=== PATIENT | female | born 1975 | race Hispanic/Latino ===

== ENCOUNTER 2018-10-31 00:14 | Emergency (ER) | payer OTHER, SELFPAY ==
[2018-10-31] MEDS ORDERED: LEVETIRACETAM 500 MG/5 ML VIAL IV ONE (00:47)
[2018-10-31] MEDS ORDERED: NA CHLORIDE 0.9% 250 ML ONE (00:47)
[2018-10-31 01:27] LABS: Absolute Lymphocytes (CBC) 3.7 K/uL (0.7-4.9); Basophils % 0.4 % (0-1.3); Hematocrit 34.5 % (36.0-45.0); Lymphocytes % 50.3 % (15.3-44.8); MPV 8.6 fL (7.6-11.3); RBC Red Blood Cell Count 3.91 M/uL (3.86-4.86)
[2018-10-31 01:35] LABS: Magnesium 1.9 mg/dL (1.8-2.4); Potassium 3.1 mmol/L (3.5-5.1)
[2018-10-31 01:46] LABS: Urine Blood 2+ (NEG); Urine Glucose NEGATIVE (NEG); Urine Protein NEGATIVE (NEG)
--- NOTE | 2018-10-31 03:32 | ER ---
Nurse's Notes [facility] Name: Shannen Boyd Age: 43 yrs Sex: Female : 1975 Arrival Date: 10/31/2018 Time: 00:16 Bed 8 Private MD: Diagnosis: Dysphagia;Epilepsy and recurrent seizures Presentation: 10/31 00:36 Presenting complaint: states: pt had a seizure in her sleep lasting 3 to 5 bb minutes pt has history of seizures pt having difficulty breathing after seizure and is holding her neck saying it helps her to breath more smoothly pt has had similar symptoms in the past which she states resolved on its own. Transition of care: patient was not received from another setting of care. Onset of symptoms was October 31, 2018. Risk Assessment: Do you want to hurt yourself or someone else? Patient reports no desire to harm self or others. Initial Sepsis Screen: Does the patient meet any 2 criteria? No. Patient's initial sepsis screen is negative. Does the patient have a suspected source of infection? No. Patient's initial sepsis screen is negative. Care prior to arrival: None. 00:36 Method Of Arrival: Ambulatory bb 00:36 Acuity: KEVAN 2 bb Triage Assessment: 00:40 Respiratory: Onset: The symptoms/episode began/occurred 2330 10/30/2018, the patient rr5 reports symptoms have resolved. 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 - Social history:: Smoking status: Patient/guardian denies using tobacco. - Ebola Screening: : No symptoms or risks identified at this time. Screenin:22 Patient has been NPO before screening. The patient is alert, able to follow commands. rr5 no voice The patient is exhibiting difficulty speaking. Provider notified of indication for Speech Therapy consult. The patient does not exhibit difficulty understanding words. The patient is able to swallow own secretions with no drooling or need for suction. Patient tolerated one teaspoon of water. No drooling, immediate coughing, gurgling, or clearing of the throat was noted. The patient tolerated 90mL of water. No drooling, immediate coughing, gurgling, or clearing of the throat was noted. The patient failed the bedside swallow screening. The patient will be kept NPO until cleared by Speech Therapy or Physician. Provider notified of bedside swallow screening results: Foster Vicnete MD. 01:30 Abuse screen: Denies threats or abuse. Denies injuries from another. Nutritional rr5 screening: No deficits noted. Tuberculosis screening: No symptoms or risk factors identified. Fall Risk Secondary diagnosis (15 points) seizures, IV access (20 points). Total Haynes Fall Scale indicates Low Risk Score (25-44 pts). Fall prevention measures have been instituted. Side Rails Up X 2 Placed close to Nursing Station Frequent Obs/Assesments occuring Family Present and informed to notify staff if they need to leave bedside As available Patient and Family Educated on Fall Prevention Program and strategies. Assessment: 00:40 General: Appears in no apparent distress. uncomfortable, Behavior is calm, cooperative, rr5 appropriate for age, Reports unable to speak to voice coming out. 00:40 Pain: Denies pain. Neuro: Level of Consciousness is awake, alert, obeys commands, rr5 Oriented to person, place, time, situation, Appropriate for age Speech difficulty to speak. Reports seizure started 2330 lasted 3-5 minutes. Cardiovascular: Capillary refill < 3 seconds Patient's skin is warm and dry. Rhythm is sinus bradycardia. Respiratory: Reports Airway is patent Trachea midline Respiratory effort is even, unlabored, Respiratory pattern is regular, symmetrical, Breath sounds are clear. GI: No signs and/or symptoms were reported involving the gastrointestinal system. : No signs and/or symptoms were reported regarding the genitourinary system. EENT: No signs and/or symptoms were reported regarding the EENT system. Derm: Skin is intact, Skin temperature is warm. Musculoskeletal: Circulation, motion, and sensation intact. Capillary refill < 3 seconds. 02:00 Reassessment: Patient appears in no apparent distress at this time. Patient and/or rr5 family updated on plan of care and expected duration. Pain level reassessed. Patient is alert, oriented x 3, equal unlabored respirations, skin warm/dry/pink. no complaints made awaiting for results. 03:00 Reassessment: Patient appears in no apparent distress at this time. Patient and/or rr5 family updated on plan of care and expected duration. Pain level reassessed. awaiting for CT result. 04:15 Reassessment: Patient appears in no apparent distress at this time. Patient is alert, rr5 oriented x 3, equal unlabored respirations, skin warm/dry/pink. 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 Vital Signs: 00:40 BP 133 / 63; Pulse 72; Resp 16 S; Temp 98(O); Pulse Ox 99% on R/A; Weight 80.74 kg (R); bb Height 5 ft. 7 in. (170.18 cm) (R); Pain 0/10; 02:46 Pulse 55; Resp 17; Pulse Ox 97% on R/A; ak1 03:05 BP 118 / 79; Pulse 58; Resp 17; Pulse Ox 98% ; rr5 04:15 BP 125 / 70; Pulse 60; Resp 16; Temp 97.5; Pulse Ox 98% ; rr5 00:40 Body Mass Index 27.88 (80.74 kg, 170.18 cm) bb ED Course: 00:16 Patient arrived in ED. ds1 00:39 Triage completed. bb 00:39 Foster Vicente MD is Attending Physician. tw4 00:40 Arm band placed on Patient placed in an exam room, on a stretcher, on pulse oximetry. bb Family accompanied patient. 00:40 Patient has correct armband on for positive identification. Placed in gown. Bed in low rr5 position. Call light in reach. Side rails up X2. manager monitoring on. Pulse ox on. NIBP on. 00:43 Fercho De RN is Primary Nurse. rr5 01:00 Inserted saline lock: 20 gauge in right antecubital area, using aseptic technique. oe Blood collected. 01:04 EKG done, by ED staff, reviewed by Foster Vicente MD. rr5 02:14 CT-SOFT TISSUE NECK W/O CONTR In Process Unspecified. EDMS 03:29 Rossi Lehman MD is Referral Physician. tw4 03:30 Gasper Yu MD is Referral Physician. tw4 03:30 Don Kidd MD is Referral Physician. tw4 04:10 No provider procedures requiring assistance completed. IV discontinued, intact, rr5 bleeding controlled, No redness/swelling at site. Pressure dressing applied. Administered Medications: 01:00 Drug: Keppra 20 mg/kg Route: IV; Rate: per protocol; Site: right antecubital; rr5 01:30 Follow up: Response: No adverse reaction; IV Status: Completed infusion; IV Intake: rr5 250ml 01:22 Not Given (Other Intervention Used): Keppra 20 mg/kg PO once; not to exceed 1,500 rr5 milligrams Point of Care Testing: Blood Glucose: 01:01 Blood Glucose: 114 mg/dL; oe Ranges: Intake: 01:30 IV: 250ml; Total: 250ml. rr5 Outcome: 03:31 Discharge ordered by . tw4 04:15 Discharged to home via wheelchair, with family. rr5 04:15 Condition: stable 04:15 Discharge instructions given to patient, family, Instructed on discharge instructions, follow up and referral plans. medication usage, Demonstrated understanding of instructions, follow-up care, medications, Prescriptions given X 1. 04:16 Patient left the ED. rr5 Signatures: Dispatcher [employer] [facility] Edith Townsend ds1 Gregoria Da Silva, RN RN Angelica Ramirez RN RN ak1 Zane Munoz Terrence, MD MD tw4 Fercho De, RN RN rr5
--- NOTE | 2018-10-31 03:32 | EDPHYS ---
Physician Documentation [facility] Name: Shannen Boyd Age: 43 yrs Sex: Female : 1975 Arrival Date: 10/31/2018 Time: 00:16 Bed 8 Private MD: ED Physician Foster Vicente HPI: 10/31 00:45 This 43 yrs old Female presents to ER via Ambulatory with complaints of tw4 Shortness Of Breath, Probable Seizure. 00:45 The patient or guardian complains of decreased range of motion. The symptoms are tw4 located on the chin. Onset: The symptoms/episode began/occurred today. Context: The problem was sustained at home. The patient presents after having a single isolated seizure. Character of seizure(s): Loss of consciousness:. Seizure onset: 1 hour(s) ago. Context: the seizure(s) was witnessed, by family, . Seizure Hx: the patient has no previous seizure history. Associated injury: Neck: decreased range of motion. 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 - Social history:: Smoking status: Patient/guardian denies using tobacco. - Ebola Screening: : No symptoms or risks identified at this time. ROS: 00:45 Constitutional: Negative for fever, chills, and weight loss, Eyes: Negative for injury, tw4 pain, redness, and discharge. 00:45 Abdomen/GI: Negative for abdominal pain, nausea, vomiting, diarrhea, and constipation, Back: Negative for injury and pain, MS/Extremity: Negative for injury and deformity, Skin: Negative for injury, rash, and discoloration. 00:45 Neck: Positive for pain with movement, stiffness. 00:45 Neuro: Positive for seizure activity, Negative for altered mental status, dizziness, gait disturbance, headache, hearing loss, loss of consciousness. Exam: 00:45 Constitutional: This is a well developed, well nourished patient who is awake, alert, tw4 and in no acute distress. Head/Face: Normocephalic, atraumatic. 00:45 Neck: External neck: is normal, no ecchymosis, no erythema, no laceration, no swelling, no tenderness, Trachea: no acute changes. Vital Signs: 00:40 BP 133 / 63; Pulse 72; Resp 16 S; Temp 98(O); Pulse Ox 99% on R/A; Weight 80.74 kg (R); bb Height 5 ft. 7 in. (170.18 cm) (R); Pain 0/10; 02:46 Pulse 55; Resp 17; Pulse Ox 97% on R/A; ak1 03:05 BP 118 / 79; Pulse 58; Resp 17; Pulse Ox 98% ; rr5 04:15 BP 125 / 70; Pulse 60; Resp 16; Temp 97.5; Pulse Ox 98% ; rr5 00:40 Body Mass Index 27.88 (80.74 kg, 170.18 cm) bb MDM: 00:39 Patient medically screened. tw4 06:00 Data reviewed: vital signs, nurses notes. Data interpreted: Pulse oximetry: 4 Interpretation: normal. Counseling: I had a detailed discussion with the patient and/or guardian regarding: the historical points, exam findings, and any diagnostic results supporting the discharge/admit diagnosis. 10/31 00:41 Order name: Magnesium tw 10/31 00:41 Order name: Basic Metabolic Panel [facility] 10/31 00:41 Order name: CBC with Diff [facility] 10/31 01:00 Order name: Glucose, Ancillary Testing [facility] 10/31 01:18 Order name: Urine Dipstick--Ancillary (enter results) [facility] 10/31 01:18 Order name: Urine --Ancillary (enter results) [facility] 10/31 00:41 Order name: Accucheck; Complete Time: 01:04 [facility] 10/31 00:41 Order name: Cardiac monitoring; Complete Time: 01:04 [facility] 10/31 00:41 Order name: EKG - Nurse/Tech; Complete Time: 01:04 [facility] 10/31 00:41 Order name: IV Saline Lock; Complete Time: 01:02 [facility] 10/31 01:15 Order name: CT-SOFT TISSUE NECK W/O CONTR [facility] 10/31 00:41 Order name: Labs collected and sent; Complete Time: 01:02 [facility] 09/23 00:41 Order name: NPO; Complete Time: 01:04 10/31 00:41 Order name: O2 Per Protocol; Complete Time: 01:04 10/31 00:41 Order name: O2 Sat Monitoring; Complete Time: 01:04 10/31 00:41 Order name: Stroke Swallow Screen; Complete Time: :4 Administered Medications: 01:00 Drug: Keppra 20 mg/kg Route: IV; Rate: per protocol; Site: right antecubital; rr5 01:30 Follow up: Response: No adverse reaction; IV Status: Completed infusion; IV Intake: rr5 250ml 01:22 Not Given (Other Intervention Used): Keppra 20 mg/kg PO once; not to exceed 1,500 rr5 milligrams Point of Care Testing: Blood Glucose: 01:01 Blood Glucose: 114 mg/dL; oe Ranges: Critical Glucose Levels:Adult <50 mg/dl or >400 mg/dl <40 mg/dl or >180 mg/dl Disposition: 10/31/18 03:31 Discharged to Home. Impression: Dysphagia, Epilepsy and recurrent seizures. - Condition is Stable. - Discharge Instructions: Seizure, Adult. - Prescriptions for Keppra 750 mg Oral Tablet - take 1 tablet by ORAL route every 12 hours; 20 tablet. - Medication Reconciliation Form, Thank You Letter, Antibiotic Education, Prescription Opioid Use, Work release form form. - Follow up: Private Physician; When: Upon discharge from the Emergency Department; Reason: If symptoms return, Recheck today's complaints, Continuance of care. Follow up: Rossi Lehman MD; When: Upon discharge from the Emergency Department; Reason: If symptoms return, Recheck today's complaints, Continuance of care. Follow up: Gasper Yu MD; When: Upon discharge from the Emergency Department; Reason: If symptoms return, Recheck today's complaints, Continuance of care. Follow up: Don Kidd MD; When: Upon discharge from the Emergency Department; Reason: If symptoms return, Recheck today's complaints, Continuance of care. - Problem is new. - Symptoms have improved. Signatures: Dispatcher [employer] Gregoria Ng RN RN Foster Palacio MD MD tw4 De, Fercho, RN RN rr5 Corrections: (The following items were deleted from the chart) 01:41 01:38 CT-SOFT TISSUE NECK W/O CONTR ordered. EDNE EDMS 04:16 03:31 10/31/2018 03:31 Discharged to Home. Impression: Dysphagia; Epilepsy and rr5 recurrent seizures. Condition is Stable. Forms are Medication Reconciliation Form, Thank You Letter, Antibiotic Education, Prescription Opioid Use. Follow up: Private Physician; When: Upon discharge from the Emergency Department; Reason: If symptoms return, Recheck today's complaints, Continuance of care. Follow up: Rossi Lehman; When: Upon discharge from the Emergency Department; Reason: If symptoms return, Recheck today's complaints, Continuance of care. Follow up: Gasper Yu; When: Upon discharge from the Emergency Department; Reason: If symptoms return, Recheck today's complaints, Continuance of care. Follow up: Don Kidd; When: Upon discharge from the Emergency Department; Reason: If symptoms return, Recheck today's complaints, Continuance of care. Problem is new. Symptoms have improved. tw4
[2018-10-31 04:31] VITALS: BP 133/63; TEMP 98
[2018-10-31 04:33] VITALS: O2SAT 97
--- NOTE | 2018-10-31 10:03 | RAD REPORT ---
EXAM DESCRIPTION: CT - CT-SOFT TISSUE NECK W/O CONTR - 10/31/2018 5:35 am CLINICAL HISTORY: Difficulty breathing COMPARISON: None. TECHNIQUE: CT-SOFT TISSUE NECK W/O CONTR on 10/31/2018 12:00 AM CDT This exam was performed according to our departmental dose-optimization program, which includes autom ated exposure control, adjustment of the mA and/or kV according to patient size and/or use of iterati ve reconstruction technique. FINDINGS: The visualized portions of the brain and orbits are normal. The oral cavity, oropharynx and nasopharynx are normal. The parapharyngeal fat planes are preserved . The hypopharynx is unremarkable. The parotid and submandibular glands are grossly within normal limits. No intrinsic mass lesions are seen. . The paranasal sinuses and mastoid air cells are clear. No definite pathologically enlarged lymph nodes are identified. The thyroid gland is normal in size and configuration. The thoracic inlet is normal. The superior mediastinum and lung apices are normal. No acute osseous abnormalities are identified. IMPRESSION: No significant abnormalities. Electronically signed by: Sanket Hilton MD 10/31/2018 2:24 AM CDT Due to temporary technical issues with the PACS/Fluency reporting system, reports are being signed by the in house radiologist as a courtesy to ensure prompt reporting. The interpreting radiologist is f ully responsible for the content of the report.
--- NOTE | 2018-10-31 13:36 | EKG ---
Test Date: 2018-10-31 Test Time: 00:58:54 [employer] Specialist: RR MEASUREMENT RESULTS: Intervals: Rate: 58 AK: 174 QRSD: 100 QT: 406 QTc: 398 [place]: P: 8 AK: 174 QRS: 21 T: 10 INTERPRETIVE STATEMENTS: Sinus bradycardia Otherwise normal ECG Compared to ECG 04/05/2008 21:02:13 Sinus rhythm no longer present Sinus arrhythmia no longer present Ventricular premature complex(es) no longer present Electronically Signed On 10-31-18 13:35:34 CDT by Dawit Jessica
== END 2018-10-31 04:16 | disposition home or self-care (01) ==
LOC: ER 00:14
DX: G40.802 Other epilepsy, not intractable, without status epilepticus (principal); Z85.3 Personal history of malignant neoplasm of breast
CPT/HCPCS: 36415; 70490; 80048; 81003; 81025; 82962; 83735; 85025; 93005; 96365; 99285; J1953

== ENCOUNTER 2022-03-30 10:00 | Emergency (ER) | payer OTHER ==
--- OUTSIDE RECORDS SUMMARY | 2022-03-30 10:08 | XMS REPORT | Continuity of Care Document ---
:[address] [facility] t Address [address] [place] [address] Care Team Providers Name Role Phone ROSA ODELL Primary Care Physician Unavailable AYE KIRKPATRICK Attending Clinician Unavailable ALYSSA MACDONALD Attending Clinician Unavailable ALYSSA MACDONALD Attending Clinician Unavailable SERGIO WALDRON Attending Clinician Unavailable KRISTINA BLACKWELL Attending Clinician Unavailable Torres CANALES, Alyssa Guo Attending Clinician King AIRPLANE TESTER, Catalina Mann Attending Clinician Unavailable Sarah Canales MD Attending Clinician SARAH CANALES Attending Clinician Unavailable Carlos Alberto Edmond PT, Janel Attending Clinician Unavailable Jhon AIRPLANE TESTER, Nayely Carter Attending Clinician Unavailable Giuseppe DORMAN, Charla Attending Clinician Unavailable Kate PT, Alejandrina Knight Attending Clinician Unavailable Lenora PT, Meli Bonilla Attending Clinician Unavailable Sergio Alvarez Attending Clinician Aye Kirkpatrick PA-C Attending Clinician ANJALI PETERS Attending Clinician Unavailable 2, [facility] Attending Clinician Unavailable Draw, [facility] Attending Clinician Unavailable Doctor Unassigned, [place] Attending Clinician Unavailable Zoran Hensley Attending Clinician ZORAN COKER Attending Clinician Unavailable Aliya Welch Attending Clinician Fabienne Driscoll Attending Clinician ALIYA PINEDO Attending Clinician Unavailable JERRY ISSA Attending Clinician Unavailable Zuhair Hammond MD, Chilvana Attending Clinician TODD ISSA Attending Clinician Unavailable Rosa Odell MD Attending Clinician ROSA ODELL Attending Clinician Unavailable HAJA CANNON Attending Clinician Unavailable PIPES, SERGIO Admitting Clinician Unavailable AYE KIRKPATRICK Admitting Clinician Unavailable Payers Payer Name Policy Type Policy Number Effective Date Expiration Date Philip bauer [facility] [id number] 2021 STAR 00:00:00 [place] [facility] [id number] 2017 00:00:00 Problems Condition Condition Condition Status Onset Resolution Last Treating Co mments Source Name Details Category Date Date Treatment Clinician Date B12 B12 Disease Active Univers deficiency deficiency 8-18 it y of 00:00: [address] Vitamin D Vitamin D Disease Active Uni vers deficiency deficiency 8-18 it y of 00:00: [address] Prediabete Prediabete Disease Active U nivers s s 8-18 ity of 00:00: [address] Fatigue Fatigue Disease Active Univers 8-17 ity of 00:00: [address] Right Right Disease Active Univers lateral lateral 8-17 ity of [place]ond[place] [facility] Obesity Obesity Disease Active Univers (BMI (BMI 6-24 ity of 30-39.9) 30-39.9) 00:00: [address] Cervical Cervical Disease Active Overview: Un lizette high risk high risk 4-26 [facility] ty of human human 00:00: g of this [place] papillomav papillomav 00 note Me dical irus (HPV) irus (HPV) might be Branch DNA test DNA test different positive positive from the original. Pap pending Allergies, Adverse Reactions, Alerts Allergy Allergy Status Severity Reaction(s) Onset Inactive Treating Comm ents Source Name Type Date Date Clinician NO KNOWN Drug Active Univers ALLERGIE Class ity of S [facility] Social History Social Habit Start Date Stop Date Quantity Comments Source History of Passive smoker University of tobacco use [facility] History SDOH University o f Alcohol Frequency [place] [facility] History [facility] University o f Alcohol Std [place] Medical Drinks Branch History [facility] o f Alcohol Binge [place] Medic al Branch Exposure to 2022-03-10 2022-03-20 Not sure University SARS-CoV-2 00:00:00 13:06:00 [place] [facility] (event) Branch Alcohol intake 2022-03-20 2022-03-20 Current drinker of Un iversity of 00:00:00 00:00:00 alcohol (finding) [facility] edical [place] Tobacco use and 2021-11-04 2021-11-04 Smokeless tobacco Un iversity of exposure 00:00:00 00:00:00 non-user [facility] Alcohol Comment 2019-07-20 2019-07-20 ocaasionally Univers ity of 00:00:00 00:00:00 [facility] Sex [birth year] Universit y of 00:00:00 00:00:00 [facility] Smoking Status Start Date Stop Date Source Never smoked tobacco [facility] Medications Ordered Filled Start Stop Current Ordering Indication Dosage Frequency Signature Comments Components Source Medication Medication Date Date Medication? Clinician (SIG) Name Name lidocaine 2022- No [id number] 2mL Univers 1% (PF) 03-20 9103 ity of (XYLOCAINE) 20:30: 19:43 [place] injection 2 00 :00 Medical mL Branch bupivacaine 2022- No [id number] 2mL Univers (preserv 03-20 9103 ity of free) 20:30: 19:43 [place] (SENSORCAIN 00 :00 Medical E MPF) 0.25 Branch % (2.5 mg/mL) injection 2 mL triamcinolo 2022- No [id number] 40mg Univers ne 03-20 9103 ity of acetonide 20:30: 19:43 [place] (KENALOG) 00 :00 Medical injection Branch 40 mg triamcinolo 2022- No [id number] 40mg 40 mg, Univers ne 03-20 9103 Infiltrati ity of acetonide 20:30: 19:43 [place] ([place] 00 :00 1 dose, On Medi endy injection Fri Branch 40 mg 03/20/22 at 1430, Routine bupivacaine 2022-0 2022- No [id number] 2mL 2 mL, Univers (preserv 03-20 9103 Infiltrati ity of free) 20:30: 19:43 on, ONCE, [place] (SENSORCAIN 00 :00 1 dose, On Me dical E MPF) 0.25 Fri Branch % (2.5 03/20/22 at mg/mL) 1430, injection 2 Routine mL lidocaine 2022-0 2022- No [id number] 2mL 2 mL, Univers 1% (PF) 03-20 9103 Infiltrati ity o f (XYLOCAINE) 20:30: 19:43 on, ONCE, [place] injection 2 00 :00 1 dose, On Me dical mL Fri Branch 03/20/22 at 1430, Routine lidocaine 2022-0 2022- No [id number] 2mL Univers 1% (PF) 03-20 9103 ity of (XYLOCAINE) 20:30: 19:43 [place] injection 2 00 :00 Medical mL Branch bupivacaine 2022-0 2022- No [id number] 2mL Univers (preserv 03-20 9103 ity of free) 20:30: 19:43 [place] (SENSORCAIN 00 :00 Medical E MPF) 0.25 Branch % (2.5 mg/mL) injection 2 mL triamcinolo 2022-0 2022- No [id number] 40mg Univers ne 03-20 9103 ity of acetonide 20:30: 19:43 [place] (KENALOG) 00 :00 Medical injection Branch 40 mg triamcinolo 2022-0 2022- No [id number] 40mg 40 mg, Univers ne 03-20 9103 Infiltrati ity of acetonide 20:30: 19:43 [place], [place] (KE[place]LOG) 00 :00 1 dose, On Medi endy injection Fri Branch 40 mg 03/20/22 at 1430, Routine bupivacaine 2022-0 2022- No [id number] 2mL 2 mL, Univers (preserv 03-20 9103 Infiltrati ity of free) 20:30: 19:43 on, ONCE, [place] (SENSORCAIN 00 :00 1 dose, On Me dical E MPF) 0.25 Fri Branch % (2.5 03/20/22 at mg/mL) 1430, injection 2 Routine mL lidocaine 2022- No [id number] 2mL 2 mL, Univers 1% (PF) 03-20 9103 Infiltrati ity o f (XYLOCAINE) 20:30: 19:43 on, ONCE, [place] injection 2 00 :00 1 dose, On Me dical mL Fri Branch 03/20/22 at 1430, Routine diazePAM 2021-02 Yes [id number] /2 to 1 Univers (VALIUM) 5 2-06 4 tab po BID ity of mg tablet 00:00: prn severe [place] 00 muscle Medical spasms and Branch neck pain. Alternate with baclofen pregabalin 2021-02 Yes [id number] 1 cap po Univers 75 mg 2-06 qam, 1 po ity of capsule 00:00: q noon [place] [facility] pregabalin 2021-02 Yes [id number] 200mg Take 1 Univers 200 mg 2-06 capsule by ity of capsule 00:00: mouth at [place] [address] bedtime. Medical Branch diazePAM 2021-02 Yes [id number] /2 to 1 Univers (VALIUM) 5 2-06 4 tab po BID ity of mg tablet 00:00: prn severe [place] 00 muscle Medical spasms and Branch neck pain. Alternate with baclofen pregabalin 2021-02 Yes [id number] 1 cap po Univers 75 mg 2-06 qam, 1 po ity of capsule 00:00: q noon [place] [facility] pregabalin 2021-02 Yes [id number] 200mg Take 1 Univers 200 mg 2-06 capsule by ity of capsule 00:00: mouth at [place] [address] bedtime. Medical Branch diazePAM 2021-02 Yes [id number] /2 to 1 Univers (VALIUM) 5 2-06 4 tab po BID ity of mg tablet 00:00: prn severe [place] 00 muscle Medical spasms and Branch neck pain. Alternate with baclofen pregabalin 2021-02 Yes [id number] 1 cap po Univers 75 mg 2-06 qam, 1 po ity of capsule 00:00: [facility] Medical Branch pregabalin 2021-02 Yes [id number] 200mg Take 1 Univers 200 mg 2-06 capsule by ity of capsule 00:00: mouth at [place] [address] bedtime. Medical Branch diazePAM 2021-02 Yes [id number] 1/2 to 1 Univers (VALIUM) 5 2-06 4 tab po BID ity of mg tablet 00:00: prn severe [place] 00 muscle Medical spasms and Branch neck pain. Alternate with baclofen pregabalin 2021-02 Yes [id number] 1 cap po Univers 75 mg 2-06 qam, 1 po ity [place] capsule [place] [address] Medical Branch pregabalin 2021-02 Yes [id number] 200mg Take 1 Univers 200 mg 2-06 capsule by ity of capsule 00:00: mouth at [place] [address] bedtime. Medical Branch diazePAM 2021-02 Yes [id number] /2 to 1 Univers (VALIUM) 5 2-06 4 tab po BID ity of mg tablet 00:00: prn severe [place] 00 muscle Medical spasms and Branch neck pain. Alternate with baclofen pregabalin 2021-02 Yes [id number] 1 cap po Univers 75 mg 2-06 qam, 1 po ity of capsule 00:00: q noon [place] [address] Medical Branch pregabalin 2021-02 Yes [id number] 200mg Take 1 Univers 200 mg 2-06 capsule by ity of capsule 00:00: mouth at [place] [address] bedtime. Medical Branch diazePAM 2021-02 Yes [id number] 1/2 to 1 Univers (VALIUM) 5 2-06 4 tab po BID ity of mg tablet 00:00: prn severe [place] 00 muscle Medical spasms and Branch neck pain. Alternate with baclofen pregabalin 2021-02 Yes [id number] 1 cap po Univers 75 mg 2-06 qam, 1 po [place]y [place] capsule [place] [address] [place] Branch pregabalin 2021-02 Yes [id number] 200mg Take 1 Univers 200 mg 2-06 capsule by ity of capsule 00:00: mouth at [place] [address] bedtime. Medical Branch diazePAM 2021-02 Yes [id number] 1/2 to 1 Univers (VALIUM) 5 2-06 4 tab po BID ity of mg tablet 00:00: prn severe [place] 00 muscle Medical spasms and Branch neck pain. Alternate with baclofen pregabalin 2021-02 Yes [id number] 1 cap po Univers 75 mg 2-06 qam, 1 po ity of capsule 00:00: q noon [place] [facility] pregabalin 2021-02 Yes [id number] 200mg Take 1 Univers 200 mg 2-06 capsule by ity of capsule 00:00: mouth at [place] 00 bedtime. Medical Branch diazePAM 2021-02 Yes [id number] 1/2 to 1 Univers (VALIUM) 5 2-06 4 tab po BID ity of mg tablet 00:00: prn severe [place] 00 muscle Medical spasms and Branch neck pain. Alternate with baclofen pregabalin 2021-02 Yes [id number] 1 cap po Univers 75 mg 2-06 qam, 1 po ity of capsule 00:00: [facility] Medical Branch pregabalin 2021-02 Yes [id number] 200mg Take 1 Univers 200 mg 2-06 capsule by ity of capsule 00:00: mouth at [place] [address] bedtime. Medical Branch diazePAM 2021-02 Yes [id number] 1/2 to 1 Univers (VALIUM) 5 2-06 4 tab po BID ity of mg tablet 00:00: prn severe [place] 00 muscle Medical spasms and Branch neck pain. Alternate with baclofen pregabalin 2021-02 Yes [id number] 1 cap po Univers 75 mg 2-06 qam, 1 po ity of capsule 00:00: q noon [place] [facility] pregabalin 2021-02 Yes [id number] 200mg Take 1 Univers 200 mg 2-06 capsule by ity of capsule 00:00: mouth at [place] [address] bedtime. Medical Branch diazePAM 2021-02 Yes [id number] 1/2 to 1 Univers (VALIUM) 5 2-06 4 tab po BID ity of mg tablet 00:00: prn severe [place] 00 muscle Medical spasms and Branch neck pain. Alternate with baclofen pregabalin 2021-02 Yes [id number] 1 cap po Univers 75 mg 2-06 qam, 1 po ity of capsule 00:00: [facility] Medical Branch pregabalin 2021-02 Yes [id number] 200mg Take 1 Univers 200 mg 2-06 capsule by ity of capsule 00:00: mouth at [place] [address] bedtime. Medical Branch diazePAM 2021-02 Yes [id number] 1/2 to 1 Univers (VALIUM) 5 2-06 4 tab po BID ity of mg tablet 00:00: prn severe [place] 00 muscle Medical spasms and Branch neck pain. Alternate with baclofen pregabalin 2021-02 Yes [id number] 1 cap po Univers 75 mg 2-06 qam, 1 po ity of capsule 00:00: q noon [place] [address] Medical Branch pregabalin 2021-02 Yes [id number] 200mg Take 1 Univers 200 mg 2-06 capsule by ity of capsule 00:00: mouth at [place] [address] bedtime. Medical Branch diazePAM 2021-02 Yes [id number] 1/2 to 1 Univers (VALIUM) 5 2-06 4 tab po BID ity of mg tablet 00:00: prn severe [place] 00 muscle Medical spasms and Branch neck pain. Alternate with baclofen pregabalin 2021-02 Yes [id number] 1 cap po Univers 75 mg 2-06 qam, 1 po ity of capsule 00:00: [facility] Medical Branch pregabalin 2021-02 Yes [id number] 200mg Take 1 Univers 200 mg 2-06 capsule by ity of capsule 00:00: mouth at [place] [address] bedtime. Medical Branch diazePAM 2021-02 Yes [id number] 1/2 to 1 Univers (VALIUM) 5 2-06 4 tab po BID ity of mg tablet 00:00: prn severe [place] 00 muscle Medical spasms and Branch neck pain. Alternate with baclofen pregabalin 2021-02 Yes [id number] 1 cap po Univers 75 mg 2-06 qam, 1 po ity of capsule 00:00: q noon [place] [facility] pregabalin 2021-02 Yes [id number] 200mg Take 1 Univers 200 mg 2-06 capsule by ity of capsule 00:00: mouth at [place] [address] bedtime. Medical Branch diazePAM 2021-02 Yes [id number] 1/2 to 1 Univers (VALIUM) 5 2-06 4 tab po BID ity of mg tablet 00:00: prn severe [place] 00 muscle Medical spasms and Branch neck pain. Alternate with baclofen pregabalin 2021-02 Yes [id number] 1 cap po Univers 75 mg 2-06 qam, 1 po ity of capsule 00:00: [facility] Medical Branch pregabalin 2021-02 Yes [id number] 200mg Take 1 Univers 200 mg 2-06 capsule by ity of capsule 00:00: mouth at [place] 00 bedtime. Medical Branch diazePAM 2021-02 Yes [id number] 1/2 to 1 Univers (VALIUM) 5 2-06 4 tab po BID ity of mg tablet 00:00: prn severe [place] 00 muscle Medical spasms and Branch neck pain. Alternate with baclofen pregabalin 2021-02 Yes [id number] 1 cap po Univers 75 mg 2-06 qam, 1 po ity of capsule 00:00: q noon [place] 00 Medical Branch pregabalin 2021-02 Yes [id number] 200mg Take 1 Univers 200 mg 2-06 capsule by ity of capsule 00:00: mouth at [place] [address] bedtime. Medical Branch diazePAM 2021-02 Yes [id number] 1/2 to 1 Univers (VALIUM) 5 2-06 4 tab po BID ity of mg tablet 00:00: prn severe [place] 00 muscle Medical spasms and Branch neck pain. Alternate with baclofen pregabalin 2021-02 Yes [id number] 1 cap po Univers 75 mg 2-06 qam, 1 po ity of capsule 00:00: q noon [place] 00 Medical Branch pregabalin 2021-02 Yes [id number] 200mg Take 1 Univers 200 mg 2-06 capsule by ity of capsule 00:00: mouth at [place] [address] bedtime. Medical Branch diazePAM 2021-02 Yes [id number] 1/2 to 1 Univers (VALIUM) 5 2-06 4 tab po BID ity of mg tablet 00:00: prn severe [place] 00 muscle Medical spasms and Branch neck pain. Alternate with baclofen pregabalin 2021-02 Yes [id number] 1 cap po Univers 75 mg 2-06 qam, 1 po ity of capsule 00:00: [facility] 00 Medical Branch pregabalin 2021-02 Yes [id number] 200mg Take 1 Univers 200 mg 2-06 capsule by ity of capsule 00:00: mouth at [place] [address] bedtime. Medical Branch diazePAM 2021-02 Yes [id number] 1/2 to 1 Univers (VALIUM) 5 2-06 4 tab po BID ity of mg tablet 00:00: prn severe [place] 00 muscle Medical spasms and Branch neck pain. Alternate with baclofen pregabalin 2021-02 Yes [id number] 1 cap po Univers 75 mg 2-06 qam, 1 po ity of capsule 00:00: q noon [place] 00 Medical Branch pregabalin 2021-02 Yes [id number] 200mg Take 1 Univers 200 mg 2-06 capsule by ity of capsule 00:00: mouth at [place] 00 bedtime. Medical Branch tiZANidine 2021-02 Yes [id number] 4mg Take 1 Univers 4 mg tablet 1-22 tablet by ity of 00:00: mouth [place] [address] every 6 Medical (six) Branch hours as needed (low back pain, muscle spasm). Alternate with baclofen. Avoid with sedating meds tiZANidine 2021-02 Yes [id number] 4mg Take 1 Univers 4 mg tablet 1-22 tablet by ity of 00:00: mouth [place] 00 every 6 Medical (six) Branch hours as needed (low back pain, muscle spasm). Alternate with baclofen. Avoid with sedating meds tiZANidine 2021-02 Yes [id number] 4mg Take 1 Univers 4 mg tablet 1-22 tablet by ity of 00:00: mouth [place] [address] every 6 Medical (six) Branch hours as needed (low back pain, muscle spasm). Alternate with baclofen. Avoid with sedating meds tiZANidine 2021-02 Yes [id number] 4mg Take 1 Univers 4 mg tablet 1-22 tablet by ity of 00:00: mouth [place] 00 every 6 Medical (six) Branch hours as needed (low back pain, muscle spasm). Alternate with baclofen. Avoid with sedating meds tiZANidine 2021-02 Yes [id number] 4mg Take 1 Univers 4 mg tablet 1-22 tablet by ity of 00:00: mouth [place] 00 every 6 Medical (six) Branch hours as needed (low back pain, muscle spasm). Alternate with baclofen. Avoid with sedating meds tiZANidine 2021-02 Yes [id number] 4mg Take 1 Univers 4 mg tablet 1-22 tablet by ity of 00:00: mouth [place] 00 every 6 Medical (six) Branch hours as needed (low back pain, muscle spasm). Alternate with baclofen. Avoid with sedating meds tiZANidine 2021-02 Yes [id number] 4mg Take 1 Univers 4 mg tablet 1-22 tablet by ity of 00:00: mouth [place] 00 every 6 Medical (six) Branch hours as needed (low back pain, muscle spasm). Alternate with baclofen. Avoid with sedating meds tiZANidine 2021-02 Yes [id number] 4mg Take 1 Univers 4 mg tablet 1-22 tablet by ity of 00:00: mouth [place] 00 every 6 Medical (six) Branch hours as needed (low back pain, muscle spasm). Alternate with baclofen. Avoid with sedating meds tiZANidine 2021-02 Yes [id number] 4mg Take 1 Univers 4 mg tablet 1-22 tablet by ity of 00:00: mouth [place] 00 every 6 Medical (six) Branch hours as needed (low back pain, muscle spasm). Alternate with baclofen. Avoid with sedating meds tiZANidine 2021-02 Yes [id number] 4mg Take 1 Univers 4 mg tablet 1-22 tablet by ity of 00:00: mouth [place] 00 every 6 Medical (six) Branch hours as needed (low back pain, muscle spasm). Alternate with baclofen. Avoid with sedating meds tiZANidine 2021-02 Yes [id number] 4mg Take 1 Univers 4 mg tablet 1-22 tablet by ity of 00:00: mouth [place] 00 every 6 Medical (six) Branch hours as needed (low back pain, muscle spasm). Alternate with baclofen. Avoid with sedating meds tiZANidine 2021-02 Yes [id number] 4mg Take 1 Univers 4 mg tablet 1-22 tablet by ity of 00:00: mouth [place] 00 every 6 Medical (six) Branch hours as needed (low back pain, muscle spasm). Alternate with baclofen. Avoid with sedating meds tiZANidine 2021-02 Yes [id number] 4mg Take 1 Univers 4 mg tablet 1-22 tablet by ity of 00:00: mouth [place] 00 every 6 Medical (six) Branch hours as needed (low back pain, muscle spasm). Alternate with baclofen. Avoid with sedating meds tiZANidine 2021-02 Yes [id number] 4mg Take 1 Univers 4 mg tablet 1-22 tablet by ity of 00:00: mouth [place] 00 every 6 Medical (six) Branch hours as needed (low back pain, muscle spasm). Alternate with baclofen. Avoid with sedating meds tiZANidine 2021-02 Yes [id number] 4mg Take 1 Univers 4 mg tablet 1-22 tablet by ity of 00:00: mouth [place] 00 every 6 Medical (six) Branch hours as needed (low back pain, muscle spasm). Alternate with baclofen. Avoid with sedating meds tiZANidine 2021-02 Yes [id number] 4mg Take 1 Univers 4 mg tablet 1-22 tablet by ity of 00:00: mouth [place] 00 every 6 Medical (six) Branch hours as needed (low back pain, muscle spasm). Alternate with baclofen. Avoid with sedating meds tiZANidine 2021-02 Yes [id number] 4mg Take 1 Univers 4 mg tablet 1-22 tablet by ity of 00:00: mouth [place] 00 every 6 Medical (six) Branch hours as needed (low back pain, muscle spasm). Alternate with baclofen. Avoid with sedating meds tiZANidine 2021-02 Yes [id number] 4mg Take 1 Univers 4 mg tablet 1-22 tablet by ity of 00:00: mouth [place] 00 every 6 Medical (six) Branch hours as needed (low back pain, muscle spasm). Alternate with baclofen. Avoid with sedating meds tiZANidine 2021-02 Yes [id number] 4mg Take 1 Univers 4 mg tablet 1-22 tablet by ity of 00:00: mouth [place] 00 every 6 Medical (six) Branch hours as needed (low back pain, muscle spasm). Alternate with baclofen. Avoid with sedating meds tiZANidine 2021-02 Yes [id number] 4mg Take 1 Univers 4 mg tablet 1-22 tablet by ity of 00:00: mouth [place] 00 every 6 Medical (six) Branch hours as needed (low back pain, muscle spasm). Alternate with baclofen. Avoid with sedating meds tiZANidine 2021-02 Yes [id number] 4mg Take 1 Univers 4 mg tablet 1-22 tablet by ity of 00:00: mouth [place] 00 every 6 Medical (six) Branch hours as needed (low back pain, muscle spasm). Alternate with baclofen. Avoid with sedating meds tiZANidine 2021-02 Yes [id number] 4mg Take 1 Univers 4 mg tablet 1-22 tablet by ity of 00:00: mouth [place] 00 every 6 Medical (six) Branch hours as needed (low back pain, muscle spasm). Alternate with baclofen. Avoid with sedating meds tiZANidine 2021-02 Yes [id number] 4mg Take 1 Univers 4 mg tablet 1-22 tablet by ity of 00:00: mouth [place] 00 every 6 Medical (six) Branch hours as needed (low back pain, muscle spasm). Alternate with baclofen. Avoid with sedating meds metroNIDAZO 2021-0 Yes [id number] 500mg Take 1 Univers LE 500 mg 9-29 tablet by ity o f tablet 00:00: mouth [place] 00 every 12 Medical (twelve) Branch hours. metroNIDAZO 2021-0 Yes [id number] 500mg Take 1 Univers LE 500 mg 9-29 tablet by ity o f tablet 00:00: mouth [place] 00 every 12 Medical (twelve) Branch hours. metroNIDAZO 2021-0 Yes [id number] 500mg Take 1 Univers LE 500 mg 9-29 tablet by ity o f tablet 00:00: mouth [place] 00 every 12 Medical (twelve) Branch hours. metroNIDAZO 2021-0 Yes [id number] 500mg Take 1 Univers LE 500 mg 9-29 tablet by ity o f tablet 00:00: mouth [place] 00 every 12 Medical (twelve) Branch hours. metroNIDAZO 2021-0 Yes [id number] 500mg Take 1 Univers LE 500 mg 9-29 tablet by ity o f tablet 00:00: mouth [place] 00 every 12 Medical (twelve) Branch hours. metroNIDAZO 2021-0 Yes [id number] 500mg Take 1 Univers LE 500 mg 9-29 tablet by ity o f tablet 00:00: mouth [place] 00 every 12 Medical (twelve) Branch hours. metroNIDAZO 2021-0 Yes [id number] 500mg Take 1 Univers LE 500 mg 9-29 tablet by ity o f tablet 00:00: mouth [place] 00 every 12 Medical (twelve) Branch hours. metroNIDAZO 2-0 Yes [id number] 500mg Take 1 Univers LE 500 mg 9-29 tablet by ity o f tablet 00:00: mouth [place] 00 every 12 Medical (twelve) Branch hours. metroNIDAZO 2021-0 Yes [id number] 500mg Take 1 Univers LE 500 mg 9-29 tablet by ity o f tablet 00:00: mouth [place] 00 every 12 Medical (twelve) Branch hours. metroNIDAZO 2-0 Yes [id number] 500mg Take 1 Univers LE 500 mg 9-29 tablet by ity o f tablet 00:00: mouth [place] 00 every 12 Medical (twelve) Branch hours. metroNIDAZO 2-0 Yes [id number] 500mg Take 1 Univers LE 500 mg 9-29 tablet by ity o f tablet 00:00: mouth [place] 00 every 12 Medical (twelve) Branch hours. metroNIDAZO 2-0 Yes [id number] 500mg Take 1 Univers LE 500 mg 9-29 tablet by ity o f tablet 00:00: mouth [place] 00 every 12 Medical (twelve) Branch hours. metroNIDAZO 2-0 Yes [id number] 500mg Take 1 Univers LE 500 mg 9-29 tablet by ity o f tablet 00:00: mouth [place] 00 every 12 Medical (twelve) Branch hours. metroNIDAZO 2-0 Yes [id number] 500mg Take 1 Univers LE 500 mg 9-29 tablet by ity o f tablet 00:00: mouth [place] 00 every 12 Medical (twelve) Branch hours. metroNIDAZO 2021-0 Yes [id number] 500mg Take 1 Univers LE 500 mg 9-29 tablet by ity o f tablet 00:00: mouth [place] 00 every 12 Medical (twelve) Branch hours. metroNIDAZO 2-0 Yes [id number] 500mg Take 1 Univers LE 500 mg 9-29 tablet by ity o f tablet 00:00: mouth [place] 00 every 12 Medical (twelve) Branch hours. metroNIDAZO 2-0 Yes [id number] 500mg Take 1 Univers LE 500 mg 9-29 tablet by ity o f tablet 00:00: mouth [place] 00 every 12 Medical (twelve) Branch hours. metroNIDAZO 2-0 Yes [id number] 500mg Take 1 Univers LE 500 mg 9-29 tablet by ity o f tablet 00:00: mouth [place] 00 every 12 Medical (twelve) Branch hours. metroNIDAZO 2022-0 Yes [id number] 500mg Take 1 [facility] 500 mg 9-29 tablet by ity o f tablet 00:00: mouth [place] 00 every 12 Medical (twelve) Branch hours. metroNIDAZO 2-0 Yes [id number] 500mg Take 1 [facility] 500 mg 9-29 tablet by ity o f tablet 00:00: mouth [place] 00 every 12 Medical (twelve) Branch hours. metroNIDAZO 2022-0 Yes [id number] 500mg Take 1 [facility] 500 mg 9-29 tablet by ity o f tablet 00:00: mouth [place] 00 every 12 Medical (twelve) Branch hours. metroNIDAZO 2022-0 Yes [id number] 500mg Take 1 [facility] 500 mg 9-29 tablet by ity o f tablet 00:00: mouth [place] 00 every 12 Medical (twelve) Branch hours. metroNIDAZO 2022-0 Yes [id number] 500mg Take 1 [facility] 500 mg 9-29 tablet by ity o f tablet 00:00: mouth [place] 00 every 12 Medical (twelve) Branch hours. ferrous 2022-0 Yes Take by [facility] sulfate 8-30 mouth. ity of (IRON ORAL) 10:00: [address] ferrous 2022-0 Yes Take by [facility] sulfate 8-30 mouth. ity of (IRON ORAL) 10:00: [address] ferrous 2022-0 Yes Take by [facility] sulfate 8-30 mouth. ity of (IRON ORAL) 10:00: [address] ferrous 2022-0 Yes Take by [facility] sulfate 8-30 mouth. ity of (IRON ORAL) 10:00: [address] ferrous 2022-0 Yes Take by [facility] sulfate 8-30 mouth. ity of (IRON ORAL) 10:00: [address] ferrous 2022-0 Yes Take by [facility] sulfate 8-30 mouth. ity of (IRON ORAL) 10:00: [address] ferrous 2022-0 Yes Take by [facility] sulfate 8-30 mouth. ity of (IRON ORAL) 10:00: [address] ferrous 2022-0 Yes Take by [facility] sulfate 8-30 mouth. ity of (IRON ORAL) 10:00: [address] ferrous 2022-0 Yes Take by [facility] sulfate 8-30 mouth. ity of (IRON ORAL) 10:00: [address] ferrous 2022-0 Yes Take by [facility] sulfate 8-30 mouth. ity of (IRON ORAL) 10:00: [address] ferrous 2022-0 Yes Take by [facility] sulfate 8-30 mouth. ity of (IRON ORAL) 10:00: [address] ferrous 2022-0 Yes Take by [facility] sulfate 8-30 mouth. ity of (IRON ORAL) 10:00: [place] [address] Medical Branch ferrous 2022-0 Yes Take by [facility] sulfate 8-30 mouth. ity of (IRON ORAL) 10:00: [place] [address] Medical Branch ferrous 2022-0 Yes Take by [facility] sulfate 8-30 mouth. ity of (IRON ORAL) 10:00: [place] [address] Medical Branch ferrous 2022-0 Yes Take by [facility] sulfate 8-30 mouth. ity of (IRON ORAL) 10:00: [place] [address] Medical Branch ferrous 2022-0 Yes Take by [facility] sulfate 8-30 mouth. ity of (IRON ORAL) 10:00: [place] [address] Medical Branch ferrous 2022-0 Yes Take by [facility] sulfate 8-30 mouth. ity of (IRON ORAL) 10:00: [place] [address] Medical Branch ferrous 2022-0 Yes Take by [facility] sulfate 8-30 mouth. ity of (IRON ORAL) 10:00: [place] [address] Medical Branch ferrous 2022-0 Yes Take by [facility] sulfate 8-30 mouth. ity of (IRON ORAL) 10:00: [place] [address] Medical Branch ferrous 2022-0 Yes Take by [facility] sulfate 8-30 mouth. ity of (IRON ORAL) 10:00: [place] [address] Medical Branch ferrous 2022-0 Yes Take by [facility] sulfate 8-30 mouth. ity of (IRON ORAL) 10:00: [place] [address] Medical Branch ferrous 2022-0 Yes Take by [facility] sulfate 8-30 mouth. ity of (IRON ORAL) 10:00: [place] [address] Medical Branch ferrous 2022-0 Yes Take by [facility] sulfate 8-30 mouth. ity of (IRON ORAL) 10:00: [place] [address] Medical Branch ferrous 2022-0 Yes Take by [facility] sulfate 8-30 mouth. ity of (IRON ORAL) 10:00: [place] [address] Medical Branch ferrous 2022-0 Yes Take by [facility] sulfate 8-30 mouth. ity of (IRON ORAL) 10:00: [place] [address] Medical Branch ferrous 2022-0 Yes Take by [facility] sulfate 8-30 mouth. ity of (IRON ORAL) 10:00: [place] [address] Medical Branch ferrous 2022-0 Yes Take by [facility] sulfate 8-30 mouth. ity of (IRON ORAL) 10:00: [place] [address] Medical Branch ferrous 2022-0 Yes Take by [facility] sulfate 8-30 mouth. ity of (IRON ORAL) 10:00: [address] Branch pregabalin 2-0 Yes [id number] 1 cap po [facility] 75 mg 8-22 qam, 2 cap ity of capsule 00:00: po QHS Medical Branch diazePAM 0 Yes [id number] 1/2 to 1 [facility] (VALIUM) 5 8-22 4 tab po BID ity of mg tablet 00:00: prn severe [place] 00 muscle Medical spasms and Branch neck pain. Alternate with baclofen topiramate Yes [id number] 100mg Take 1 [facility] 100 mg 8-22 tablet by ity of tablet 00:00: mouth in [place] 00 the Medical morning Branch and 1 tablet in the evening. sumatriptan 0 Yes [id number] /2 to 1 [facility] 100 mg 8-22 9105 tab at ity of tablet 00:00: onset of [place] headache, Medical may repeat Branch x 1 in 2h if headache remains. No more than 9 days per month diclofenac 0 Yes [id number] 50mg Take 1 [facility] 50 mg EC 8-22 tablet by ity of tablet 00:00: mouth 3 (three) Medical times Branch daily with meals as needed for Pain (migraines ). baclofen 5 0 Yes [id number] 1-2 tab po [facility] mg tablet 8-22 TID prn ity of 00:00: low back [place] 00 pain, neck Medical pain, Branch muscle spasms proMETHazin 0 Yes [id number] 25mg Take 1 [facility] e 25 mg 8-22 9105 tablet by ity of tablet 00:00: mouth 00 every 4 Medical (four) Branch hours as needed for Nausea and Vomiting (N/V) (or migraines) . pregabalin 0 Yes [id number] 1 cap po [facility] 75 mg 8-22 qam, 2 cap ity of capsule 00:00: po QHS 00 Medical Branch diazePAM 2021-0 Yes [id number] /2 to 1 [facility] (VALIUM) 5 8-22 4 tab po BID ity of mg tablet 00:00: prn severe [place] 00 muscle Medical spasms and Branch neck pain. Alternate with baclofen topiramate 0 Yes [id number] 100mg Take 1 [facility] 100 mg 8-22 tablet by ity of tablet 00:00: mouth in [place] 00 the Medical morning Branch and 1 tablet in the evening. sumatriptan 0 Yes [id number] 1/2 to 1 [facility] 100 mg 8-22 9105 tab at ity of tablet 00:00: onset of headache, Medical may repeat Branch x 1 in 2h if headache remains. No more than 9 days per month diclofenac 2021-0 Yes [id number] 50mg Take 1 [facility] 50 mg EC 8-22 tablet by ity of tablet 00:00: mouth 3 (three) Medical times Branch daily with meals as needed for Pain (migraines ). baclofen 5 2021-0 Yes [id number] 1-2 tab po [facility] mg tablet 8-22 TID prn ity of 00:00: low back [place] 00 pain, neck Medical pain, Branch muscle spasms proMETHazin 0 Yes [id number] 25mg Take 1 [facility] e 25 mg 8-22 9105 tablet by ity of tablet 00:00: mouth [place] 00 every 4 Medical (four) Branch hours as needed for Nausea and Vomiting (N/V) (or migraines) . pregabalin Yes [id number] 1 cap po [facility] 75 mg 8-22 qam, 2 cap ity of capsule 00:00: po QHS [place] 00 Medical Branch diazePAM 2021-0 Yes [id number] 1/2 to 1 [facility] (VALIUM) 5 8-22 4 tab po BID ity of mg tablet 00:00: prn severe [place] 00 muscle Medical spasms and Branch neck pain. Alternate with baclofen topiramate 2021-0 Yes [id number] 100mg Take 1 [facility] 100 mg 8-22 tablet by ity of tablet 00:00: mouth in 00 the Medical morning Branch and 1 tablet in the evening. sumatriptan Yes [id number] 1/2 to 1 [facility] 100 mg 8-22 9105 tab at ity of tablet 00:00: onset of 00 headache, Medical may repeat Branch x 1 in 2h if headache remains. No more than 9 days per month diclofenac 2021-0 Yes [id number] 50mg Take 1 [facility] 50 mg EC 8-22 tablet by ity of tablet 00:00: mouth 3 00 (three) Medical times Branch daily with meals as needed for Pain (migraines ). baclofen 5 2021-0 Yes [id number] 1-2 tab po [facility] mg tablet 8-22 TID prn ity of 00:00: low back [place] 00 pain, neck Medical pain, Branch muscle spasms proMETHazin 0 Yes [id number] 25mg Take 1 [facility] e 25 mg 8-22 9105 tablet by ity of tablet 00:00: mouth [place] 00 every 4 Medical (four) Branch hours as needed for Nausea and Vomiting (N/V) (or migraines) . pregabalin Yes [id number] 1 cap po [facility] 75 mg 8-22 qam, 2 cap ity of capsule 00:00: po QHS [place] 00 Medical Branch diazePAM 2021-0 Yes [id number] 1/2 to 1 [facility] (VALIUM) 5 8-22 4 tab po BID ity of mg tablet 00:00: prn severe [place] 00 muscle Medical spasms and Branch neck pain. Alternate with baclofen topiramate 0 Yes [id number] 100mg Take 1 [facility] 100 mg 8-22 tablet by ity of tablet 00:00: mouth in [place] 00 the Medical morning Branch and 1 tablet in the evening. sumatriptan Yes [id number] 1/2 to 1 [facility] 100 mg 8-22 9105 tab at ity of tablet 00:00: onset of [place] 00 headache, Medical may repeat Branch x 1 in 2h if headache remains. No more than 9 days per month diclofenac 0 Yes [id number] 50mg Take 1 [facility] 50 mg EC 8-22 tablet by ity of tablet 00:00: mouth 3 [place] 00 (three) Medical times Branch daily with meals as needed for Pain (migraines ). baclofen 5 0 Yes [id number] 1-2 tab po [facility] mg tablet 8-22 TID prn ity of 00:00: low back [place] 00 pain, neck Medical pain, Branch muscle spasms proMETHazin 0 Yes [id number] 25mg Take 1 [facility] e 25 mg 8-22 9105 tablet by ity of tablet 00:00: mouth [place] 00 every 4 Medical (four) Branch hours as needed for Nausea and Vomiting (N/V) (or migraines) . pregabalin Yes [id number] 1 cap po [facility] 75 mg 8-22 qam, 2 cap ity of capsule 00:00: po QHS [place] 00 Medical Branch diazePAM 2022-0 Yes [id number] /2 to 1 [facility] (VALIUM) 5 8-22 4 tab po BID ity of mg tablet 00:00: prn severe [place] 00 muscle Medical spasms and Branch neck pain. Alternate with baclofen topiramate 0 Yes [id number] 100mg Take 1 [facility] 100 mg 8-22 tablet by ity of tablet 00:00: mouth in [place] 00 the Medical morning Branch and 1 tablet in the evening. sumatriptan 2021-0 Yes [id number] /2 to 1 [facility] 100 mg 8-22 9105 tab at ity of tablet 00:00: onset of [place] 00 headache, Medical may repeat Branch x 1 in 2h if headache remains. No more than 9 days per month diclofenac 2021-0 Yes [id number] 50mg Take 1 [facility] 50 mg EC 8-22 tablet by ity of tablet 00:00: mouth 3 [place] 00 (three) Medical times Branch daily with meals as needed for Pain (migraines ). baclofen 5 2021-0 Yes [id number] 1-2 tab po [facility] mg tablet 8-22 TID prn ity of 00:00: low back [place] 00 pain, neck Medical pain, Branch muscle spasms proMETHazin 2021-0 Yes [id number] 25mg Take 1 [facility] e 25 mg 8-22 9105 tablet by ity of tablet 00:00: mouth [place] 00 every 4 Medical (four) Branch hours as needed for Nausea and Vomiting (N/V) (or migraines) . pregabalin 2021-0 Yes [id number] 1 cap po [facility] 75 mg 8-22 qam, 2 cap ity of capsule 00:00: po QHS [place] 00 Medical Branch diazePAM 2021-0 Yes [id number] /2 to 1 [facility] (VALIUM) 5 8-22 4 tab po BID ity of mg tablet 00:00: prn severe [place] 00 muscle Medical spasms and Branch neck pain. Alternate with baclofen topiramate 2021-0 Yes [id number] 100mg Take 1 [facility] 100 mg 8-22 tablet by ity of tablet 00:00: mouth in [place] 00 the Medical morning Branch and 1 tablet in the evening. sumatriptan 2021-0 Yes [id number] /2 to 1 [facility] 100 mg 8-22 9105 tab at ity of tablet 00:00: onset of headache, Medical may repeat Branch x 1 in 2h if headache remains. No more than 9 days per month diclofenac 2021-0 Yes [id number] 50mg Take 1 [facility] 50 mg EC 8-22 tablet by ity of tablet 00:00: mouth 3 (three) Medical times Branch daily with meals as needed for Pain (migraines ). baclofen 5 0 Yes [id number] 1-2 tab po [facility] mg tablet 8-22 TID prn ity of 00:00: low back [place] 00 pain, neck Medical pain, Branch muscle spasms proMETHazin 2021-0 Yes [id number] 25mg Take 1 [facility] e 25 mg 8-22 9105 tablet by ity of tablet 00:00: mouth 00 every 4 Medical (four) Branch hours as needed for Nausea and Vomiting (N/V) (or migraines) . pregabalin 0 Yes [id number] 1 cap po [facility] 75 mg 8- qam, 2 cap ity of capsule 00:00: po QHS 00 Medical Branch diazePAM 2021-0 Yes [id number] 1/2 to 1 [facility] (VALIUM) 5 8-22 4 tab po BID ity of mg tablet 00:00: prn severe [place] 00 muscle Medical spasms and Branch neck pain. Alternate with baclofen topiramate Yes [id number] 100mg Take 1 [facility] 100 mg 8-22 tablet by ity of tablet 00:00: mouth in 00 the Medical morning Branch and 1 tablet in the evening. sumatriptan Yes [id number] 1/2 to 1 [facility] 100 mg 8-22 9105 tab at ity of tablet 00:00: onset of headache, Medical may repeat Branch x 1 in 2h if headache remains. No more than 9 days per month diclofenac 2021-0 Yes [id number] 50mg Take 1 [facility] 50 mg EC 8-22 tablet by ity of tablet 00:00: mouth 3 (three) Medical times Branch daily with meals as needed for Pain (migraines ). baclofen 5 2021-0 Yes [id number] 1-2 tab po [facility] mg tablet 8-22 TID prn ity of 00:00: low back [place] 00 pain, neck Medical pain, Branch muscle spasms proMETHazin Yes [id number] 25mg Take 1 [facility] e 25 mg 8-22 9105 tablet by ity of tablet 00:00: mouth [place] 00 every 4 Medical (four) Branch hours as needed for Nausea and Vomiting (N/V) (or migraines) . pregabalin Yes [id number] 1 cap po [facility] 75 mg 8-22 qam, 2 cap ity of capsule 00:00: po QHS Medical Branch diazePAM 0 Yes [id number] 1/2 to 1 [facility] (VALIUM) 5 8-22 4 tab po BID ity of mg tablet 00:00: prn severe [place] 00 muscle Medical spasms and Branch neck pain. Alternate with baclofen topiramate Yes [id number] 100mg Take 1 [facility] 100 mg 8-22 tablet by ity of tablet 00:00: mouth in [place] 00 the Medical morning Branch and 1 tablet in the evening. sumatriptan Yes [id number] 1/2 to 1 [facility] 100 mg 8-22 9105 tab at ity of tablet 00:00: onset of [place] 00 headache, Medical may repeat Branch x 1 in 2h if headache remains. No more than 9 days per month diclofenac Yes [id number] 50mg Take 1 [facility] 50 mg EC 8-22 tablet by ity of tablet 00:00: mouth 3 00 (three) Medical times Branch daily with meals as needed for Pain (migraines ). baclofen 5 0 Yes [id number] 1-2 tab po [facility] mg tablet 8-22 TID prn ity of 00:00: low back [place] 00 pain, neck Medical pain, Branch muscle spasms proMETHazin Yes [id number] 25mg Take 1 [facility] e 25 mg 8-22 9105 tablet by ity of tablet 00:00: mouth 00 every 4 Medical (four) Branch hours as needed for Nausea and Vomiting (N/V) (or migraines) . pregabalin Yes [id number] 1 cap po [facility] 75 mg 8-22 qam, 2 cap ity of capsule 00:00: po QHS [place] 00 Medical Branch diazePAM 0 Yes [id number] 1/2 to 1 [facility] (VALIUM) 5 8-22 4 tab po BID ity of mg tablet 00:00: prn severe [place] 00 muscle Medical spasms and Branch neck pain. Alternate with baclofen topiramate 2021-0 Yes [id number] 100mg Take 1 [facility] 100 mg 8-22 tablet by ity of tablet 00:00: mouth in [place] 00 the Medical morning Branch and 1 tablet in the evening. sumatriptan 2021-0 Yes [id number] 1/2 to 1 [facility] 100 mg 8-22 9105 tab at ity of tablet 00:00: onset of [place] headache, Medical may repeat Branch x 1 in 2h if headache remains. No more than 9 days per month diclofenac 2021-0 Yes [id number] 50mg Take 1 [facility] 50 mg EC 8-22 tablet by ity of tablet 00:00: mouth 3 (three) Medical times Branch daily with meals as needed for Pain (migraines ). baclofen 5 2021-0 Yes [id number] 1-2 tab po [facility] mg tablet 8-22 TID prn ity of 00:00: low back [place] 00 pain, neck Medical pain, Branch muscle spasms proMETHazin 2021-0 Yes [id number] 25mg Take 1 [facility] e 25 mg 8-22 9105 tablet by ity of tablet 00:00: mouth 00 every 4 Medical (four) Branch hours as needed for Nausea and Vomiting (N/V) (or migraines) . pregabalin 2021-0 Yes [id number] 1 cap po [facility] 75 mg 8-22 qam, 2 cap ity of capsule 00:00: po QHS Medical Branch diazePAM 2021-0 Yes [id number] 1/2 to 1 [facility] (VALIUM) 5 8-22 4 tab po BID ity of mg tablet 00:00: prn severe [place] 00 muscle Medical spasms and Branch neck pain. Alternate with baclofen topiramate 2021-0 Yes [id number] 100mg Take 1 [facility] 100 mg 8-22 tablet by ity of tablet 00:00: mouth in [place] 00 the Medical morning Branch and 1 tablet in the evening. sumatriptan 2021-0 Yes [id number] 1/2 to 1 [facility] 100 mg 8-22 9105 tab at ity of tablet 00:00: onset of [place] headache, Medical may repeat Branch x 1 in 2h if headache remains. No more than 9 days per month diclofenac 2021-0 Yes [id number] 50mg Take 1 [facility] 50 mg EC 8-22 tablet by ity of tablet 00:00: mouth 3 (three) Medical times Branch daily with meals as needed for Pain (migraines ). baclofen 5 2021-0 Yes [id number] 1-2 tab po [facility] mg tablet 8-22 TID prn ity of 00:00: low back [place] 00 pain, neck Medical pain, Branch muscle spasms proMETHazin 2021-0 Yes [id number] 25mg Take 1 [facility] e 25 mg 8-22 9105 tablet by ity of tablet 00:00: mouth [place] 00 every 4 Medical (four) Branch hours as needed for Nausea and Vomiting (N/V) (or migraines) . topiramate 0 Yes [id number] 100mg Take 1 [facility] 100 mg 8-22 tablet by ity of tablet 00:00: mouth in [place] 00 the Medical morning Branch and 1 tablet in the evening. sumatriptan 0 Yes [id number] 02/09 to 1 [facility] 100 mg 8-22 9105 tab at ity of tablet 00:00: onset of 00 headache, Medical may repeat Branch x 1 in 2h if headache remains. No more than 9 days per month diclofenac 2021-0 Yes [id number] 50mg Take 1 [facility] 50 mg EC 8-22 tablet by ity of tablet 00:00: mouth 3 (three) Medical times Branch daily with meals as needed for Pain (migraines ). baclofen 5 0 Yes [id number] 1-2 tab po [facility] mg tablet 8-22 TID prn ity of 00:00: low back [place] 00 pain, neck Medical pain, Branch muscle spasms proMETHazin 2021-0 Yes [id number] 25mg Take 1 [facility] e 25 mg 8-22 9105 tablet by ity of tablet 00:00: mouth [place] 00 every 4 Medical (four) Branch hours as needed for Nausea and Vomiting (N/V) (or migraines) . topiramate 2021-0 Yes [id number] 100mg Take 1 [facility] 100 mg 8-22 tablet by ity of tablet 00:00: mouth in [place] 00 the Medical morning Branch and 1 tablet in the evening. sumatriptan 2021-0 Yes [id number] 1/2 to 1 [facility] 100 mg 8-22 9105 tab at ity of tablet 00:00: onset of 00 headache, Medical may repeat Branch x 1 in 2h if headache remains. No more than 9 days per month diclofenac 2021-0 Yes [id number] 50mg Take 1 [facility] 50 mg EC 8-22 tablet by ity of tablet 00:00: mouth 3 00 (three) Medical times Branch daily with meals as needed for Pain (migraines ). baclofen 5 2021-0 Yes [id number] 1-2 tab po [facility] mg tablet 8-22 TID prn ity of 00:00: low back [place] 00 pain, neck Medical pain, Branch muscle spasms proMETHazin 2021-0 Yes [id number] 25mg Take 1 [facility] e 25 mg 8-22 9105 tablet by ity of tablet 00:00: mouth [place] 00 every 4 Medical (four) Branch hours as needed for Nausea and Vomiting (N/V) (or migraines) . topiramate 2021-0 Yes [id number] 100mg Take 1 [facility] 100 mg 8-22 tablet by ity of tablet 00:00: mouth in 00 the Medical morning Branch and 1 tablet in the evening. sumatriptan 2021-0 Yes [id number] /2 to 1 [facility] 100 mg 8-22 9105 tab at ity of tablet 00:00: onset of 00 headache, Medical may repeat Branch x 1 in 2h if headache remains. No more than 9 days per month diclofenac 2021-0 Yes [id number] 50mg Take 1 [facility] 50 mg EC 8-22 tablet by ity of tablet 00:00: mouth 3 (three) Medical times Branch daily with meals as needed for Pain (migraines ). baclofen 5 0 Yes [id number] 1-2 tab po [facility] mg tablet 8-22 TID prn ity of 00:00: low back [place] 00 pain, neck Medical pain, Branch muscle spasms proMETHazin 2021-0 Yes [id number] 25mg Take 1 [facility] e 25 mg 8-22 9105 tablet by ity of tablet 00:00: mouth [place] 00 every 4 Medical (four) Branch hours as needed for Nausea and Vomiting (N/V) (or migraines) . topiramate 2021-0 Yes [id number] 100mg Take 1 [facility] 100 mg 8-22 tablet by ity of tablet 00:00: mouth in [place] 00 the Medical morning Branch and 1 tablet in the evening. sumatriptan 2021-0 Yes [id number] 1/2 to 1 [facility] 100 mg 8-22 9105 tab at ity of tablet 00:00: onset of 00 headache, Medical may repeat Branch x 1 in 2h if headache remains. No more than 9 days per month diclofenac 2021-0 Yes [id number] 50mg Take 1 [facility] 50 mg EC 8-22 tablet by ity of tablet 00:00: mouth 3 (three) Medical times Branch daily with meals as needed for Pain (migraines ). baclofen 5 2021-0 Yes [id number] 1-2 tab po [facility] mg tablet 8-22 TID prn ity of 00:00: low back [place] 00 pain, neck Medical pain, Branch muscle spasms proMETHazin 2021-0 Yes [id number] 25mg Take 1 [facility] e 25 mg 8-22 9105 tablet by ity of tablet 00:00: mouth 00 every 4 Medical (four) Branch hours as needed for Nausea and Vomiting (N/V) (or migraines) . topiramate 2021-0 Yes [id number] 100mg Take 1 [facility] 100 mg 8-22 tablet by ity of tablet 00:00: mouth in [place] 00 the Medical morning Branch and 1 tablet in the evening. sumatriptan 2021-0 Yes [id number] 1/2 to 1 [facility] 100 mg 8-22 9105 tab at ity of tablet 00:00: onset of 00 headache, Medical may repeat Branch x 1 in 2h if headache remains. No more than 9 days per month diclofenac 2021-0 Yes [id number] 50mg Take 1 [facility] 50 mg EC 8-22 tablet by ity of tablet 00:00: mouth 3 (three) Medical times Branch daily with meals as needed for Pain (migraines ). baclofen 5 2021-0 Yes [id number] 1-2 tab po [facility] mg tablet 8-22 TID prn ity of 00:00: low back [place] 00 pain, neck Medical pain, Branch muscle spasms proMETHazin 2021-0 Yes [id number] 25mg Take 1 [facility] e 25 mg 8-22 9105 tablet by ity of tablet 00:00: mouth [place] 00 every 4 Medical (four) Branch hours as needed for Nausea and Vomiting (N/V) (or migraines) . topiramate 0 Yes [id number] 100mg Take 1 [facility] 100 mg 8-22 tablet by ity of tablet 00:00: mouth in [place] 00 the Medical morning Branch and 1 tablet in the evening. sumatriptan 2021-0 Yes [id number] 1/2 to 1 [facility] 100 mg 8-22 9105 tab at ity of tablet 00:00: onset of [place] 00 headache, Medical may repeat Branch x 1 in 2h if headache remains. No more than 9 days per month diclofenac 2021-0 Yes [id number] 50mg Take 1 [facility] 50 mg EC 8-22 tablet by ity of tablet 00:00: mouth 3 (three) Medical times Branch daily with meals as needed for Pain (migraines ). baclofen 5 0 Yes [id number] 1-2 tab po [facility] mg tablet 8-22 TID prn ity of 00:00: low back [place] 00 pain, neck Medical pain, Branch muscle spasms proMETHazin 0 Yes [id number] 25mg Take 1 [facility] e 25 mg 8-22 9105 tablet by ity of tablet 00:00: mouth 00 every 4 Medical (four) Branch hours as needed for Nausea and Vomiting (N/V) (or migraines) . topiramate 0 Yes [id number] 100mg Take 1 [facility] 100 mg 8-22 tablet by ity of tablet 00:00: mouth in [place] 00 the Medical morning Branch and 1 tablet in the evening. sumatriptan 0 Yes [id number] /2 to 1 [facility] 100 mg 8-22 9105 tab at ity of tablet 00:00: onset of 00 headache, Medical may repeat Branch x 1 in 2h if headache remains. No more than 9 days per month diclofenac 2021-0 Yes [id number] 50mg Take 1 [facility] 50 mg EC 8-22 tablet by ity of tablet 00:00: mouth 3 (three) Medical times Branch daily with meals as needed for Pain (migraines ). baclofen 5 2021-0 Yes [id number] 1-2 tab po [facility] mg tablet 8-22 TID prn ity of 00:00: low back [place] 00 pain, neck Medical pain, Branch muscle spasms proMETHazin 2021-0 Yes [id number] 25mg Take 1 [facility] e 25 mg 8-22 9105 tablet by ity of tablet 00:00: mouth [place] 00 every 4 Medical (four) Branch hours as needed for Nausea and Vomiting (N/V) (or migraines) . topiramate 2021-0 Yes [id number] 100mg Take 1 [facility] 100 mg 8-22 tablet by ity of tablet 00:00: mouth in [place] 00 the Medical morning Branch and 1 tablet in the evening. sumatriptan 2021-0 Yes [id number] 1/2 to 1 [facility] 100 mg 8-22 9105 tab at ity of tablet 00:00: onset of 00 headache, Medical may repeat Branch x 1 in 2h if headache remains. No more than 9 days per month diclofenac 2021-0 Yes [id number] 50mg Take 1 [facility] 50 mg EC 8-22 tablet by ity of tablet 00:00: mouth 3 (three) Medical times Branch daily with meals as needed for Pain (migraines ). baclofen 5 2021-0 Yes [id number] 1-2 tab po [facility] mg tablet 8-22 TID prn ity of 00:00: low back [place] 00 pain, neck Medical pain, Branch muscle spasms proMETHazin 2021-0 Yes [id number] 25mg Take 1 [facility] e 25 mg 8-22 9105 tablet by ity of tablet 00:00: mouth [place] 00 every 4 Medical (four) Branch hours as needed for Nausea and Vomiting (N/V) (or migraines) . topiramate 2021-0 Yes [id number] 100mg Take 1 [facility] 100 mg 8-22 tablet by ity of tablet 00:00: mouth in [place] 00 the Medical morning Branch and 1 tablet in the evening. sumatriptan 2021-0 Yes [id number] 1/2 to 1 [facility] 100 mg 8-22 9105 tab at ity of tablet 00:00: onset of 00 headache, Medical may repeat Branch x 1 in 2h if headache remains. No more than 9 days per month diclofenac 2021-0 Yes [id number] 50mg Take 1 [facility] 50 mg EC 8-22 tablet by ity of tablet 00:00: mouth 3 (three) Medical times Branch daily with meals as needed for Pain (migraines ). baclofen 5 2021-0 Yes [id number] 1-2 tab po [facility] mg tablet 8-22 TID prn ity of 00:00: low back [place] 00 pain, neck Medical pain, Branch muscle spasms proMETHazin 2021-0 Yes [id number] 25mg Take 1 [facility] e 25 mg 8-22 9105 tablet by ity of tablet 00:00: mouth [place] 00 every 4 Medical (four) Branch hours as needed for Nausea and Vomiting (N/V) (or migraines) . topiramate 2021-0 Yes [id number] 100mg Take 1 [facility] 100 mg 8-22 tablet by ity of tablet 00:00: mouth in [place] 00 the Medical morning Branch and 1 tablet in the evening. sumatriptan 2021-0 Yes [id number] 1/2 to 1 [facility] 100 mg 8-22 9105 tab at ity of tablet 00:00: onset of [place] 00 headache, Medical may repeat Branch x 1 in 2h if headache remains. No more than 9 days per month diclofenac 2021-0 Yes [id number] 50mg Take 1 [facility] 50 mg EC 8-22 tablet by ity of tablet 00:00: mouth 3 [place] 00 (three) Medical times Branch daily with meals as needed for Pain (migraines ). baclofen 5 2021-0 Yes [id number] 1-2 tab po [facility] mg tablet 8-22 TID prn ity of 00:00: low back [place] 00 pain, neck Medical pain, Branch muscle spasms proMETHazin 2021-0 Yes [id number] 25mg Take 1 [facility] e 25 mg 8-22 9105 tablet by ity of tablet 00:00: mouth [place] 00 every 4 Medical (four) Branch hours as needed for Nausea and Vomiting (N/V) (or migraines) . topiramate 2021-0 Yes [id number] 100mg Take 1 [facility] 100 mg 8-22 tablet by ity of tablet 00:00: mouth in [place] 00 the Medical morning Branch and 1 tablet in the evening. sumatriptan 2021-0 Yes [id number] 1/2 to 1 [facility] 100 mg 8-22 9105 tab at ity of tablet 00:00: onset of [place] 00 headache, Medical may repeat Branch x 1 in 2h if headache remains. No more than 9 days per month diclofenac 2021-0 Yes [id number] 50mg Take 1 [facility] 50 mg EC 8-22 tablet by ity of tablet 00:00: mouth 3 [place] 00 (three) Medical times Branch daily with meals as needed for Pain (migraines ). baclofen 5 2021-0 Yes [id number] 1-2 tab po [facility] mg tablet 8-22 TID prn ity of 00:00: low back [place] 00 pain, neck Medical pain, Branch muscle spasms proMETHazin 2021-0 Yes [id number] 25mg Take 1 [facility] e 25 mg 8-22 9105 tablet by ity of tablet 00:00: mouth [place] 00 every 4 Medical (four) Branch hours as needed for Nausea and Vomiting (N/V) (or migraines) . topiramate 2021-0 Yes [id number] 100mg Take 1 [facility] 100 mg 8-22 tablet by ity of tablet 00:00: mouth in [place] 00 the Medical morning Branch and 1 tablet in the evening. sumatriptan 2021-0 Yes [id number] 1/2 to 1 [facility] 100 mg 8-22 9105 tab at ity of tablet 00:00: onset of 00 headache, Medical may repeat Branch x 1 in 2h if headache remains. No more than 9 days per month diclofenac 2021-0 Yes [id number] 50mg Take 1 [facility] 50 mg EC 8-22 tablet by ity of tablet 00:00: mouth 3 (three) Medical times Branch daily with meals as needed for Pain (migraines ). baclofen 5 2021-0 Yes [id number] 1-2 tab po [facility] mg tablet 8-22 TID prn ity of 00:00: low back [place] 00 pain, neck Medical pain, Branch muscle spasms proMETHazin 2021-0 Yes [id number] 25mg Take 1 [facility] e 25 mg 8-22 9105 tablet by ity of tablet 00:00: mouth [place] 00 every 4 Medical (four) Branch hours as needed for Nausea and Vomiting (N/V) (or migraines) . topiramate 2021-0 Yes [id number] 100mg Take 1 [facility] 100 mg 8-22 tablet by ity of tablet 00:00: mouth in [place] 00 the Medical morning Branch and 1 tablet in the evening. sumatriptan 2021-0 Yes [id number] 1/2 to 1 [facility] 100 mg 8-22 9105 tab at ity of tablet 00:00: onset of 00 headache, Medical may repeat Branch x 1 in 2h if headache remains. No more than 9 days per month diclofenac 2021-0 Yes [id number] 50mg Take 1 [facility] 50 mg EC 8-22 tablet by ity of tablet 00:00: mouth 3 (three) Medical times Branch daily with meals as needed for Pain (migraines ). baclofen 5 0 Yes [id number] 1-2 tab po [facility] mg tablet 8-22 TID prn ity of 00:00: low back [place] 00 pain, neck Medical pain, Branch muscle spasms proMETHazin 0 Yes [id number] 25mg Take 1 [facility] e 25 mg 8-22 9105 tablet by ity of tablet 00:00: mouth [place] 00 every 4 Medical (four) Branch hours as needed for Nausea and Vomiting (N/V) (or migraines) . topiramate Yes [id number] 100mg Take 1 [facility] 100 mg 8-22 tablet by ity of tablet 00:00: mouth in the Medical morning Branch and 1 tablet in the evening. sumatriptan Yes [id number] 1/2 to 1 [facility] 100 mg 8-22 9105 tab at ity of tablet 00:00: onset of headache, Medical may repeat Branch x 1 in 2h if headache remains. No more than 9 days per month diclofenac 2021-0 Yes [id number] 50mg Take 1 [facility] 50 mg EC 8-22 tablet by ity of tablet 00:00: mouth 3 (three) Medical times Branch daily with meals as needed for Pain (migraines ). baclofen 5 Yes [id number] 1-2 tab po [facility] mg tablet 8-22 TID prn ity of 00:00: low back [place] 00 pain, neck Medical pain, Branch muscle spasms proMETHazin 2021-0 Yes [id number] 25mg Take 1 [facility] e 25 mg 8-22 9105 tablet by ity of tablet 00:00: mouth [place] 00 every 4 Medical (four) Branch hours as needed for Nausea and Vomiting (N/V) (or migraines) . topiramate 0 Yes [id number] 100mg Take 1 [facility] 100 mg 8-22 tablet by ity of tablet 00:00: mouth in [place] 00 the Medical morning Branch and 1 tablet in the evening. sumatriptan 2021-0 Yes [id number] 1/2 to 1 [facility] 100 mg 8-22 9105 tab at ity of tablet 00:00: onset of headache, Medical may repeat Branch x 1 in 2h if headache remains. No more than 9 days per month diclofenac 2021-0 Yes [id number] 50mg Take 1 [facility] 50 mg EC 8-22 tablet by ity of tablet 00:00: mouth 3 (three) Medical times Branch daily with meals as needed for Pain (migraines ). baclofen 5 2021-0 Yes [id number] 1-2 tab po [facility] mg tablet 8-22 TID prn ity of 00:00: low back [place] 00 pain, neck Medical pain, Branch muscle spasms proMETHazin 2021-0 Yes [id number] 25mg Take 1 [facility] e 25 mg 8-22 9105 tablet by ity of tablet 00:00: mouth [place] 00 every 4 Medical (four) Branch hours as needed for Nausea and Vomiting (N/V) (or migraines) . topiramate 2021-0 Yes [id number] 100mg Take 1 [facility] 100 mg 8-22 tablet by ity of tablet 00:00: mouth in [place] 00 the Medical morning Branch and 1 tablet in the evening. sumatriptan 2021-0 Yes [id number] 1/2 to 1 [facility] 100 mg 8-22 9105 tab at ity of tablet 00:00: onset of headache, Medical may repeat Branch x 1 in 2h if headache remains. No more than 9 days per month diclofenac 2021-0 Yes [id number] 50mg Take 1 [facility] 50 mg EC 8-22 tablet by ity of tablet 00:00: mouth 3 (three) Medical times Branch daily with meals as needed for Pain (migraines ). baclofen 5 2021-0 Yes [id number] 1-2 tab po [facility] mg tablet 8-22 TID prn ity of 00:00: low back [place] 00 pain, neck Medical pain, Branch muscle spasms proMETHazin 2021-0 Yes [id number] 25mg Take 1 [facility] e 25 mg 8-22 9105 tablet by ity of tablet 00:00: mouth [place] 00 every 4 Medical (four) Branch hours as needed for Nausea and Vomiting (N/V) (or migraines) . topiramate 2021-0 Yes [id number] 100mg Take 1 [facility] 100 mg 8-22 tablet by ity of tablet 00:00: mouth in [place] 00 the Medical morning Branch and 1 tablet in the evening. sumatriptan 2021-0 Yes [id number] 1/2 to 1 [facility] 100 mg 8-22 9105 tab at ity of tablet 00:00: onset of [place] 00 headache, Medical may repeat Branch x 1 in 2h if headache remains. No more than 9 days per month diclofenac 2021-0 Yes [id number] 50mg Take 1 [facility] 50 mg EC 8-22 tablet by ity of tablet 00:00: mouth 3 (three) Medical times Branch daily with meals as needed for Pain (migraines ). baclofen 5 2021-0 Yes [id number] 1-2 tab po [facility] mg tablet 8-22 TID prn ity of 00:00: low back [place] 00 pain, neck Medical pain, Branch muscle spasms proMETHazin 2021-0 Yes [id number] 25mg Take 1 [facility] e 25 mg 8-22 9105 tablet by ity of tablet 00:00: mouth [place] 00 every 4 Medical (four) Branch hours as needed for Nausea and Vomiting (N/V) (or migraines) . topiramate 2021-0 Yes [id number] 100mg Take 1 [facility] 100 mg 8-22 tablet by ity of tablet 00:00: mouth in [place] 00 the Medical morning Branch and 1 tablet in the evening. sumatriptan 2021-0 Yes [id number] 1/2 to 1 [facility] 100 mg 8-22 9105 tab at ity of tablet 00:00: onset of [place] 00 headache, Medical may repeat Branch x 1 in 2h if headache remains. No more than 9 days per month diclofenac 2021-0 Yes [id number] 50mg Take 1 [facility] 50 mg EC 8-22 tablet by ity of tablet 00:00: mouth 3 (three) Medical times Branch daily with meals as needed for Pain (migraines ). baclofen 5 2021-0 Yes [id number] 1-2 tab po [facility] mg tablet 8-22 TID prn ity of 00:00: low back [place] 00 pain, neck Medical pain, Branch muscle spasms proMETHazin 2021-0 Yes [id number] 25mg Take 1 [facility] e 25 mg 09-29 tablet by ity of tablet 00:00: mouth [place] 00 every 4 Medical (four) Branch hours as needed for Nausea and Vomiting (N/V) (or migraines) . pregabalin 2021- No [id number] 1 cap po [facility] 75 mg 09-29 qam, 2 cap ity of capsule 00:00: 00:00 po QHS [place] 00 :00 Medical Branch diazePAM 2021- No [id number] 1/2 to 1 [facility] (VALIUM) 5 09-29 4 tab po BID it y of mg tablet 00:00: 00:00 prn severe [place] :00 muscle Medical spasms and Branch neck pain. Alternate with baclofen pregabalin 2021- No [id number] 1 cap po [facility] 75 mg 09-29 qam, 2 cap ity of capsule 00:00: 00:00 po QHS [place] 00 :00 Medical Branch diazePAM 2021- No [id number] 1/2 to 1 [facility] (VALIUM) 5 09-29 4 tab po BID it y of mg tablet 00:00: 00:00 prn severe [place] 00 :00 muscle Medical spasms and Branch neck pain. Alternate with baclofen cyanocobala 2020-02 Yes [id number] 1{tbl} Take 1 [facility] min, 1-17 tablet by ity of vitamin 00:00: mouth [place] B-12, 2,500 00 daily. Medica l mcg Tab Branch cyanocobala 2020-02 Yes [id number] 1{tbl} Take 1 [facility] min, 1-17 tablet by ity of vitamin 00:00: mouth [place] B-12, 2,500 00 daily. Medica l mcg Tab Branch cyanocobala 2020-02 Yes [id number] 1{tbl} Take 1 [facility] min, 1-17 tablet by ity of vitamin 00:00: mouth [place] B-12, 2,500 00 daily. Medica l mcg Tab Branch cyanocobala 2020-02 Yes [id number] 1{tbl} Take 1 [facility] min, 1-17 tablet by ity of vitamin 00:00: mouth [place] B-12, 2,500 00 daily. Medica l mcg Tab Branch cyanocobala 2020-02 Yes [id number] 1{tbl} Take 1 [facility] min, 1-17 tablet by ity of vitamin 00:00: mouth [place] B-12, 2,500 00 daily. Medica l mcg Tab Branch cyanocobala 2020-02 Yes [id number] 1{tbl} Take 1 [facility] min, 1-17 tablet by ity of vitamin 00:00: mouth [place] B-12, 2,500 00 daily. Medica l mcg Tab Branch cyanocobala 2020-02 Yes [id number] 1{tbl} Take 1 [facility] min, 1-17 tablet by ity of vitamin 00:00: mouth [place] B-12, 2,500 00 daily. Medica l mcg Tab Branch cyanocobala 2020-02 Yes [id number] 1{tbl} Take 1 [facility] min, 1-17 tablet by ity of vitamin 00:00: mouth [place] B-12, 2,500 00 daily. Medica l mcg Tab Branch cyanocobala 2020-02 Yes [id number] 1{tbl} Take 1 [facility] min, 1-17 tablet by ity of vitamin 00:00: mouth [place] B-12, 2,500 00 daily. Medica l mcg Tab Branch cyanocobala 2020-02 Yes [id number] 1{tbl} Take 1 [facility] min, 1-17 tablet by ity of vitamin 00:00: mouth [place] B-12, 2,500 00 daily. Medica l mcg Tab Branch cyanocobala 2020-02 Yes [id number] 1{tbl} Take 1 [facility] min, 1-17 tablet by ity of vitamin 00:00: mouth [place] B-12, 2,500 00 daily. Medica l mcg Tab Branch cyanocobala 2020-02 Yes [id number] 1{tbl} Take 1 [facility] min, 1-17 tablet by ity of vitamin 00:00: mouth [place] B-12, 2,500 00 daily. Medica l mcg Tab Branch cyanocobala 2020-02 Yes [id number] 1{tbl} Take 1 [facility] min, 1-17 tablet by ity of vitamin 00:00: mouth [place] B-12, 2,500 00 daily. Medica l mcg Tab Branch cyanocobala 2020-02 Yes [id number] 1{tbl} Take 1 [facility] min, 1-17 tablet by ity of vitamin 00:00: mouth [place] B-12, 2,500 00 daily. Medica l mcg Tab Branch cyanocobala 2020-02 Yes [id number] 1{tbl} Take 1 [facility] min, 1-17 tablet by ity of vitamin 00:00: mouth [place] B-12, 2,500 00 daily. Medica l mcg Tab Branch cyanocobala 2020-02 Yes [id number] 1{tbl} Take 1 [facility] min, 1-17 tablet by ity of vitamin 00:00: mouth [place] B-12, 2,500 00 daily. Medica l mcg Tab Branch cyanocobala 2020-02 Yes [id number] 1{tbl} Take 1 [facility] min, 1-17 tablet by ity of vitamin 00:00: mouth [place] B-12, 2,500 00 daily. Medica l mcg Tab Branch cyanocobala 2020-02 Yes [id number] 1{tbl} Take 1 [facility] min, 1-17 tablet by ity of vitamin 00:00: mouth [place] B-12, 2,500 00 daily. Medica l mcg Tab Branch cyanocobala 2020-02 Yes [id number] 1{tbl} Take 1 [facility] min, 1-17 tablet by ity of vitamin 00:00: mouth [place] B-12, 2,500 00 daily. Medica l mcg Tab Branch cyanocobala 2020-02 Yes [id number] 1{tbl} Take 1 [facility] min, 1-17 tablet by ity of vitamin 00:00: mouth [place] B-12, 2,500 00 daily. Medica l mcg Tab Branch cyanocobala 2020-02 Yes [id number] 1{tbl} Take 1 [facility] min, 1-17 tablet by ity of vitamin 00:00: mouth [place] B-12, 2,500 00 daily. Medica l mcg Tab Branch cyanocobala 2020-02 Yes [id number] 1{tbl} Take 1 [facility] min, 1-17 tablet by ity of vitamin 00:00: mouth [place] B-12, 2,500 00 daily. Medica l mcg Tab Branch cyanocobala 2020-02 Yes [id number] 1{tbl} Take 1 [facility] min, 1-17 tablet by ity of vitamin 00:00: mouth [place] B-12, 2,500 00 daily. Medica l mcg Tab Branch cyanocobala 2020-02 Yes [id number] 1{tbl} Take 1 [facility] min, 1-17 tablet by ity of vitamin 00:00: mouth [place] B-12, 2,500 00 daily. Medica l mcg Tab Branch cyanocobala 2020-02 Yes [id number] 1{tbl} Take 1 [facility] min, 1-17 tablet by ity of vitamin 00:00: mouth [place] B-12, 2,500 00 daily. Medica l mcg Tab Branch cyanocobala 2020-02 Yes [id number] 1{tbl} Take 1 [facility] min, 1-17 tablet by ity of vitamin 00:00: mouth [place] B-12, 2,500 00 daily. Medica l mcg Tab Branch cyanocobala 2020-02 Yes [id number] 1{tbl} Take 1 [facility] min, 1-17 tablet by ity of vitamin 00:00: mouth [place] B-12, 2,500 00 daily. Medica l mcg Tab Branch cyanocobala 2020-02 Yes [id number] 1{tbl} Take 1 [facility] min, 1-17 tablet by ity of vitamin 00:00: mouth [place] B-12, 2,500 00 daily. Medica l mcg Tab Branch methylPREDN 2020-0 Yes [id number] Follow Univers ISolone 4 8-10 package ity of mg tablets 00:00: directions [place] [facility] methylPREDN 2021-0 Yes [id number] Follow [facility] ISolone 4 8-10 package ity of mg tablets 00:00: directions [place] [facility] methylPREDN 2021-0 Yes [id number] Follow [facility] ISolone 4 8-10 package ity of mg tablets 00:00: directions [place] [facility] methylPREDN 2021-0 Yes [id number] Follow [facility] ISolone 4 8-10 package ity of mg tablets 00:00: directions [place] [facility] methylPREDN 2021-0 Yes [id number] Follow [facility] ISolone 4 8-10 package ity of mg tablets 00:00: directions [place] [facility] methylPREDN 2021-0 Yes [id number] Follow [facility] ISolone 4 8-10 package ity of mg tablets 00:00: directions [place] Medical Branch methylPREDN 2021-0 Yes [id number] Follow [facility] ISolone 4 8-10 package ity of mg tablets 00:00: directions [place] [facility] Branch methylPREDN 2021-0 Yes [id number] Follow [facility] ISolone 4 8-10 package ity of mg tablets 00:00: directions [place] [facility] Branch methylPREDN 2021-0 Yes [id number] Follow [facility] ISolone 4 8-10 package ity of mg tablets 00:00: directions [place] [facility] methylPREDN 2021-0 Yes [id number] Follow [facility] ISolone 4 8-10 package ity of mg tablets 00:00: directions [place] [facility] Branch methylPREDN 2021-0 Yes [id number] Follow [facility] ISolone 4 8-10 package ity of mg tablets 00:00: directions [place] [facility] Branch methylPREDN 2021-0 Yes [id number] Follow [facility] ISolone 4 8-10 package ity of mg tablets 00:00: directions [place] [facility] Branch methylPREDN 2021-0 Yes [id number] Follow Univers ISolone 4 8-10 package ity of mg tablets 00:00: directions [place] [facility] Branch methylPREDN 2021-0 Yes [id number] Follow [facility] ISolone 4 8-10 package ity of mg tablets 00:00: directions [place] [facility] Branch methylPREDN 2021-0 Yes [id number] Follow Univers ISolone 4 8-10 package ity of mg tablets 00:00: directions [place] [facility] Branch methylPREDN 2021-0 Yes [id number] Follow Univers ISolone 4 8-10 package ity of mg tablets 00:00: directions [place] [facility] Branch methylPREDN 2021-0 Yes [id number] Follow Univers ISolone 4 8-10 package ity of mg tablets 00:00: directions [place] [facility] Branch methylPREDN 2021-0 Yes [id number] Follow Univers ISolone 4 8-10 package ity of mg tablets 00:00: directions [place] [facility] Branch methylPREDN 2021-0 Yes [id number] Follow Univers ISolone 4 8-10 package ity of mg tablets 00:00: directions [place] [facility] Branch methylPREDN 2021-0 Yes [id number] Follow Univers ISolone 4 8-10 package ity of mg tablets 00:00: directions [place] [facility] Branch methylPREDN 2021-0 Yes [id number] Follow Univers ISolone 4 8-10 package ity of mg tablets 00:00: directions [place] [facility] Branch methylPREDN 2021-0 Yes [id number] Follow Univers ISolone 4 8-10 package ity of mg tablets 00:00: directions [place] [facility] Branch methylPREDN 2021-0 Yes [id number] Follow Univers ISolone 4 8-10 package ity of mg tablets 00:00: directions [place] [facility] Branch methylPREDN 2021-0 Yes [id number] Follow Univers ISolone 4 8-10 package ity of mg tablets 00:00: directions [place] [facility] Branch methylPREDN 2021-0 Yes [id number] Follow Univers ISolone 4 8-10 package ity of mg tablets 00:00: directions [place] [facility] Branch methylPREDN 2021-0 Yes [id number] Follow Univers ISolone 4 8-10 package ity of mg tablets 00:00: directions [place] [facility] Branch methylPREDN 2021-0 Yes [id number] Follow Univers ISolone 4 8-10 package ity of mg tablets 00:00: directions [place] [facility] Branch methylPREDN 2021-0 Yes [id number] Follow Univers ISolone 4 8-10 package ity of mg tablets 00:00: directions [facility] Branch Immunizations Ordered Filled Immunization Date Status Comments [facility] e Immunization Name Name Varicella 2011-12-24 Completed University of (varivax)(chicken 00:00:00 [place] M edical pox) Branch Varicella 2011-12-24 Completed University of (varivax)(chicken 00:00:00 [place] M edical pox) Branch Varicella 2011-12-24 Completed University of (varivax)(chicken 00:00:00 [place] M edical pox) Branch Varicella 2011-12-24 Completed University of (varivax)(chicken 00:00:00 [place] M edical pox) Branch Varicella 2011-12-24 Completed [facility] of (varivax)(chicken 00:00:00 [place] M edical pox) Branch Varicella 2011-12-24 Completed [facility] of (varivax)(chicken 00:00:00 [place] M edical pox) Branch Varicella 2011-12-24 Completed [facility] of (varivax)(chicken 00:00:00 [place] M edical pox) Branch Varicella 2011-12-24 Completed [facility] of (varivax)(chicken 00:00:00 [place] M edical pox) Branch Varicella 2011-12-24 Completed [facility] of (varivax)(chicken 00:00:00 [place] M edical pox) Branch Varicella 2011-12-24 Completed University of (varivax)(chicken 00:00:00 [place] M edical pox) Branch Varicella 2011-12-24 Completed [facility] of (varivax)(chicken 00:00:00 [place] M edical pox) Branch Varicella 2011-12-24 Completed University of (varivax)(chicken 00:00:00 [place] M edical pox) Branch Varicella 2011-12-24 Completed University of (varivax)(chicken 00:00:00 [place] M edical pox) Branch Varicella 2011-12-24 Completed University of (varivax)(chicken 00:00:00 [place] M edical pox) Branch Varicella 2011-12-24 Completed University of (varivax)(chicken 00:00:00 [place] M edical pox) Branch Varicella 2011-12-24 Completed University of (varivax)(chicken 00:00:00 [place] M edical pox) Branch Varicella 2011-12-24 Completed University of (varivax)(chicken 00:00:00 [place] M edical pox) Branch Varicella 2011-12-24 Completed University of (varivax)(chicken 00:00:00 [place] M edical pox) Branch Varicella 2011-12-24 Completed University of (varivax)(chicken 00:00:00 [place] M edical pox) Branch Varicella 2011-12-24 Completed University of (varivax)(chicken 00:00:00 [place] M edical pox) Branch Varicella 2011-12-24 Completed University of (varivax)(chicken 00:00:00 [place] M edical pox) Branch Varicella 2011-12-24 Completed [facility] of (varivax)(chicken 00:00:00 [place] M edical pox) Branch Varicella 2011-12-24 Completed University of (varivax)(chicken 00:00:00 [place] M edical pox) Branch Varicella 2011-12-24 Completed University of (varivax)(chicken 00:00:00 [place] M edical pox) Branch Varicella 2011-12-24 Completed University of (varivax)(chicken 00:00:00 [place] M edical pox) Branch Varicella 2011-12-24 Completed University of (varivax)(chicken 00:00:00 [place] M edical pox) Branch Varicella 2011-12-24 Completed University of (varivax)(chicken 00:00:00 [place] M edical pox) Branch Varicella 2011-12-24 Completed University of (varivax)(chicken 00:00:00 [place] M edical pox) Branch TDAP 2011-02-08 Completed University of 00:00:00 [facility] TDAP 2011-02-08 Completed University of 00:00:00 [facility] TDAP 2011-02-08 Completed University of 00:00:00 [facility] TDAP 2011-02-08 Completed University of 00:00:00 [facility] TDAP 2011-02-08 Completed University of 00:00:00 [facility] TDAP 2011-02-08 Completed University of 00:00:00 [facility] TDAP 2011-02-08 Completed University of 00:00:00 [facility] TDAP 2011-02-08 Completed University of 00:00:00 [facility] TDAP 2011-02-08 Completed University of 00:00:00 [facility] TDAP 2011-02-08 Completed University of 00:00:00 [facility] TDAP 2011-02-08 Completed University of 00:00:00 [facility] TDAP 2011-02-08 Completed University of 00:00:00 [facility] TDAP 2011-02-08 Completed University of 00:00:00 [facility] TDAP 2011-02-08 Completed University of 00:00:00 [facility] TDAP 2011-02-08 Completed University of 00:00:00 [facility] TDAP 2011-02-08 Completed University of 00:00:00 [facility] TDAP 2011-02-08 Completed University of 00:00:00 [facility] TDAP 2011-02-08 Completed University of 00:00:00 [facility] TDAP 2011-02-08 Completed University of 00:00:00 [facility] TDAP 2011-02-08 Completed University of 00:00:00 [facility] TDAP 2011-02-08 Completed University of 00:00:00 [place] [facility] TDAP 2011-02-08 Completed University of 00:00:00 [place] [facility] TDAP 2011-02-08 Completed University of 00:00:00 [place] [facility] TDAP 2011-02-08 Completed University of 00:00:00 [place] [facility] TDAP 2011-02-08 Completed University of 00:00:00 [place] [facility] TDAP 2011-02-08 Completed University of 00:00:00 [place] [facility] TDAP 2011-02-08 Completed University of 00:00:00 [place] [facility] TDAP 2011-02-08 Completed University of 00:00:00 [facility] Vital Signs Vital Name Observation Time Observation Value Comments Source Systolic blood 2022-03-20 19:17:00 128 mm[Hg] Univer sity of pressure [facility] Diastolic blood 2022-03-20 19:17:00 65 mm[Hg] Unive rsity of pressure [facility] Heart rate 2022-03-20 19:17:00 76 /min [facility] Body temperature 2022-03-20 19:17:00 36.72 [facility] [place] [facility] 2022-03-20 19:17:00 17 /min [facility] Body height 2022-03-20 19:17:[facility] 2022-03-20 19:17:00 82.555 kg [facility] BMI 2022-03-20 19:17:00 29.38 kg/m2 [facility] Oxygen saturation in 2022-03-20 19:17:00 98 /min University Arterial blood by [facility] Pulse oximetry Branch Systolic blood 2022-01-22 21:12:00 119 mm[Hg] Univer sity of pressure [facility] Diastolic blood 2022-01-22 21:12:00 73 mm[Hg] Unive rsity of pressure [facility] Respiratory rate 2022-01-22 21:12:00 12 /[facility] 2022-01-22 21:12:00 167.6 cm Universi ty [facility] Body weight 2022-01-22 21:12:00 78.926 [facility] 2022-01-22 21:12:00 28.08 kg/m2 [facility] Oxygen saturation in 2022-01-22 21:12:00 98 /min [facility] Arterial blood by [place] [facility] Pulse oximetry Branch Systolic blood 2022-01-13 15:28:00 140 mm[Hg] Univer [facility]ity [facility] Diastolic blood 2022-01-13 15:28:00 83 mm[Hg] Unive rsity [facility] Heart rate 2022-01-13 15:28:00 79 /min [facility] Body height 2022-01-13 15:28:00 167.6 cm [facility] Body weight 2022-01-13 15:28:00 78.654 kg [facility] BMI 2022-01-13 15:28:00 27.99 kg/m2 [facility] Oxygen saturation in 2022-01-13 15:28:00 96 /min University of Arterial blood by [facility] Pulse oximetry Branch Systolic blood 2021-12-30 14:47:00 135 mm[Hg] [facility] Diastolic blood 2021-12-30 14:47:00 81 mm[Hg] Unive rsity [facility] Heart rate 2021-12-30 14:41:00 56 /min [facility] Body temperature 2021-12-30 14:41:00 36.17 Iesha [facility] Body height 2021-12-30 14:41:00 167.6 cm [facility] Body weight 2021-12-30 14:41:00 84.596 kg [facility] BMI 2021-12-30 14:41:00 30.10 kg/m2 [facility] Oxygen saturation in 2021-12-30 14:41:00 98 /min [facility] Arterial blood by [facility] Pulse oximetry Branch Systolic blood 2021-11-04 15:58:00 133 mm[Hg] [facility] Diastolic blood 2021-11-04 15:58:00 77 mm[Hg] Unive rsity [facility] Heart rate 2021-11-04 15:58:00 58 /min [facility] Body temperature 2021-11-04 15:58:00 36.94 [facility] height 2021-11-04 15:58:00 167.6 cm [facility] Body weight 2021-11-04 15:58:00 84.46 kg [facility] BMI 2021-11-04 15:58:00 30.05 kg/m2 [facility] Procedures Procedure Date / Time Performing Clinician Source Performed [place] TIME OR 2022-03-20 19:45:40 Alyssa Macdonald [facility] (NON-REPORTABLE) [facility] MR LUMBAR SPINE WO 2022-01-06 17:35:[address] [facility] CONTRAST [facility] XR HIPS 3 VW LEFT 2021-12-30 15:51:30 Vanita [facility] BI ULTRASOUND BREAST 2021-10-24 17:37:36 [facility] BI DIAGNOSTIC 2021-10-24 16:43:56 Kaya [facility] [place] TOMOSYNTHESIS BILATERAL [facility] Encounters Start End Encounter Admission Attending Care Care Encounter Source Date/Time Date/Time Type Type Clinicians Facility Department ID 2022-04-13 2022-04-13 Outpatient Yelena WALDRON [facility] [id number] Univers 10:00:00 10:00:00 [facility] 2022-03-30 2022-03-30 Outpatient Yelena BLACKWELL [facility] [id number] Univers 09:30:00 09:30:00 KRISTINA [facility] 2022-03-20 2022-03-20 Hospital [facility] 1.2.840.114 [id number] Univers 13:33:01 23:59:00 Encounter Alyssa BAL 350.1.13.10 Jodi PEGUERO 4.2.7.2.686 [facility] [id number] [facility] AND DAVIES [address] [facility] 2022-03-20 2022-03-20 [facility] 1.2.840.114 [id number] Univers 13:30:00 14:00:00 Visit Alyssa MULTISPEC 350.1.13.10 ity of [place] [id number] [address] DI[facility]ETES CLINIC 2022-03-20 2022-03-20 Outpatient R ALYSSA MACDONALD [facility] [id number] Univers 13:30:00 13:30:00 ALYSSA MACDONALD itcipriano [facility] 2022-03-12 2022-03-12 Telephone Torres [facility] 1.2.499.342 [id number] Univers 00:00:00 00:00:00 Alyssa MULTISPEC 350.1.13.10 ity [place] [id number] [address] [facility]INIC 2022-03-06 2022-03-06 Outpatient ALYSSA ERICKSON [facility] [id number] Univers 11:00:00 11:00:[address] [facility] 2022-03-02 2022-03-02 Telephone Torres [facility] 1.2.415.181 [id number] Univers 00:00:00 00:00:00 Alyssa MULTISPEC 350.1.13.10 ity of [place] [id number] [address] DIABETES CLINIC 2022-02-24 2022-02-24 Ancillary Catalina Malik [facility] 1.2.840 .114 [id number] Univers 08:45:00 09:30:00 Visit Sarah Canales 350.1.13.10 ity of [place].2.7.2.686 [place] [facility] [id number] [address] 2022-02-24 2022-02-24 Outpatient Yelena CANALES [facility] [id number] Univers 08:45:00 08:45:[address] [facility] 2022-02-19 2022-02-19 Ancillary Catalina Malik [facility] 1.2.840 .114 [id number] Univers 08:00:00 08:45:00 Visit Sarah Canales 350.1.13.10 [place].2.7.2.[place] [id number] In dical NAL [address] [facility] 2022 2022 Ancillary Janel Espitia [place] 1 .2.840.114 [id number] Univers 08:45:00 09:36:56 Visit Sarah Canales 350.1.13.10 [place] 4.2.7.2.[place] [phone] In dical NAL [address] [facility] 2022-02-10 2022-02-10 Ancillary Jhon Nayely Carter [facility] 1.2. 840.114 [id number] Univers 08:45:00 09:22:04 Visit Sarah Canales 350.1.13.10 [place] 4.2.7.2.[place] [id number] In dical NAL 179 [facility] 2022-02-04 2022-02-04 Ancillary Charla Chin [facility] 1.2.840 .114 [id number] Univers 15:15:00 16:00:00 Visit Sarah Canales 350.1.13.10 [place] 4.2.7.2.[place] [id number] In dical NAL 179 [facility] 2022-02-04 2022-02-04 Outpatient R ALLY [facility] [id number] Univers 15:15:00 15:15:00 SARAH ity of [facility] 2022-02-03 2022-02-03 Ancillary Catalina Malik [facility] 1.2.840 .114 [id number] Univers 08:00:00 08:45:00 Visit Sarah Canales 350.1.13.10 [place] 4.2.7.2.[place] [id number] In dical NAL 179 [facility] 2022-01-28 2022-01-28 Ancillary Catalina Malik [facility] 1.2.840 .114 [id number] Univers 16:00:00 16:39:46 Visit Canales Sarah PLASCENCIA 350.1.13.[address] [facility] 4.2.7.2.686 [place] [id number] In dical NAL 179 [facility] 2022-01-26 2022-01-26 Ancillary KateAlejandrina Antonia [facility] 1.2.84 0.114 [id number] Univers 08:45:00 09:30:00 Visit Sarah Canales 350.1.13.[address] [facility] 4.2.7.2.[place] [id number] In dical NAL 179 [facility] 2022-01-22 2022-01-22 Outpatient R ALYSSA MACDONALD [facility] [id number] Univers 15:00:00 16:02:50 ALYSSA MACDONALD [facility] 2022-01-22 2022-01-22 Office [facility] 1.2.840.114 [id number] Univers 15:00:00 16:02:50 Visit Alyssa BAL 350.1.13.10 ity of [place].2.7.2.[place] [id number] [facility] AND [address] DIABETES CLINIC 2022-01-19 2022-01-19 Ancillary Cooley Meli Irene [facility] 1.2.840. 114 [id number] [facility] 17:00:00 18:01:30 Visit Sarah Canales 350.1.13.10 ity of [place] 4.2.7.2.686 [place] [phone] In dical NAL 179 [facility] 2022-01-13 2022-01-13 Outpatient R VANITA [facility] [id number] Univers 09:30:00 10:18:37 [facility] 2022-01-13 2022-01-13 Office Vanita, [facility] 1.2.840.114 [id number] Univers 09:30:00 10:18:[address] [facility] 350.1.13.10 it y of [place].2.7.2.[place] [id number] [address] OFFICE BUILDING 2022-01-06 2022-01-06 Outpatient R PIPES, [facility] [id number] Univers 09:51:35 23:59:[address] [facility] 2022-01-06 2022-01-06 Hospital Pipes, [facility] 1.2.840.114 [id number] Univers 09:51:35 23:59:00 Encounter Sergio GROSSTON 350.1.13.10 [place].2.7.2.[place] [id number] [address] 2022-01-06 2022-01-06 Patient Pipes, [facility] 1.2.840.114 [id number] Univers 00:00:00 00:00:00 Secure Msg Sergio HEALTH 350.1.13.10 ity of [place].2.7.2.[place] [id number] [address] OFFICE BUILDING 2021-12-30 2021-12-30 Hospital Pipes, [facility] 1.2.840.114 [id number] Univers 09:20:00 23:59:00 Encounter Sergio HEALTH 350.1.13.10 [place] of [place].2.[place] [id number] [address] ([facility]) 2021-12-30 2021-12-30 Outpatient R PIPCOLBY, [facility] [id number] Univers 09:20:00 23:59:[address] [facility] 2021-12-30 2021-12-30 Office Pipes, [facility] 1.2.840.114 [id number] Univers 08:30:00 09:00:00 Visit Sergio HEALTH 350.1.13.10 it y of [place]2.7.2.[place] [id number] [address] OFFICE BUILDING 2021-11-10 2021-11-10 Outpatient R ALYSSA MACDONALD [facility] [id number] Univers 09:30:00 09:30:[address] [facility] 2021-11-04 2021-11-04 [facility] [id number] Univers 10:30:00 11:29:[address] [facility] 2021-11-04 2021-11-04 Office [facility] 1.2.647.280 [id number] Univers 10:30:00 11:29:06 Visit Aye THAIS 350.1.13.10 i ty weston [place]MO[place] 4.2.7.2.[place] [id number] In olga [address] 2021-10-27 2021-10-27 Out[facility] [id number] Univers 16:00:00 16:00:00 [facility] 2021-10-24 2021-10-24 [facility] 1.2.840.114 [id number] Univers 10:53:57 23:59:00 Encounter Aye SPECIALTY 350.1.13.10 ity of [place].2.7.2.[place] AT [id number] In olga [address] 2021-10-24 2021-10-24 [facility] [place] [id number] Univers 10:53:40 23:59:00 [facility] 2021-10-24 2021-10-24 [facility] 1.2.840.114 [id number] Univers 10:53:40 23:59:00 Encounter Aye SPECIALTY 350.1.13.10 it[place] of [place] 4.2.7.2.[place] AT [id number] In olga RAMOS 800 [facility] 2021-10-11 2021-10-11 Telephone [facility] 1.2.403.653 [id number] Univers 00:00:00 00:00:00 Alyssa MULTISPEC 350.1.13.10 ity of [place] 4.2.7.2.[place] [id number] [facility] AND [place] [address] DIABETES CLINIC 2021-10-10 2021-10-10 [facility]phone [facility] 1.2.317.258 [id number] Univers 00:00:00 00:00:00 Alyssa MULTISPEC 350.1.13.10 ity of [place].2.7.2.[place] [id number] [facility] [address] DI[facility] CLINIC 2021-10-10 2021-10-10 Telephone [facility] 1.2.115.106 [id number] Univers 00:00:00 00:00:00 [facility] HEALTH 350.1.13.10 it y of [place].2.7.2.686 [place] [id number] [place] [address] OFFICE BUILDING 2021-10-09 2021-10-09 Outpatient ALYSSA ERICKSON [facility] [id number] Univers 11:22:08 23:59:[address] [facility] 2021-10-09 2021-10-09 [facility] 1.2.840.114 [id number] Univers 11:22:08 23:59:00 Encounter Alyssa MULTISPEC 350.1.13.10 ity of [place] 4.2.7.2.686 [place] [id number] [facility] [address] DI[facility]ETES CLINIC 2021-10-09 2021-10-09 Office [facility] 1.2.840.114 [id number] Univers 11:30:00 12:00:00 Visit Alyssa MULTISPEC 350.1.13.10 ity of [place] 4.2.7.2.686 [place] [id number] [facility] [address] [facility] CLINIC 2021-10-09 2021-10-09 Outpatient ALYSSA ERICKSON [facility] [id number] Univers 11:30:00 11:30:[address] [facility] 2021-10-09 2021-10-09 Outpatient ALYSSA ERICKSON [facility] [id number] Univers 11:30:00 11:30:[address] [facility] 2021-10-09 2021-10-09 Outpatient ALYSSA ERICKSON [facility] [id number] Univers 11:22:08 11:22:[address] [facility] 2021-10-07 2021-10-07 Sports Attorney 2, Adc Lab [facility] 1.2.840.114 [id number] Univers 10:45:00 11:00:00 Visit Aye KirkpatrickIVONNE 350.1.13.10 ity of [place].2.7.2.686 [place] [id number] In dical NAL [address] [facility] 2021-10-07 2021-10-07 Outpatient R KAYA [facility] [id number] Univers 09:30:00 10:30:[address] [facility] 2021-10-07 2021-10-07 Office Kaya [facility] 1.2.673.839 [id number] Univers 09:30:00 10:30:25 Visit Ayemickie PLASCENCIA 350.1.13.10 i ty [address] [facility] 4.2.7.2.686 [place] [id number] In dical NAL [address] [facility] 2021-10-07 2021-10-07 Telephone Torres [facility] 1.2.186.053 [id number] Univers 00:00:00 00:00:00 Alyssa DEMARCOPEC 350.1.13.10 ity of [place].2.7.2.686 [place] [id number] [address] DIABETES CLINIC 2021-09-29 2021-09-29 Sports Attorney Draw, Clc-Bls Lab [facility] 1.2.8 40.114 [id number] Univers 10:15:00 10:30:00 Visit Vanita, [facility] 350.1.13.10 ity of [place].2.7.2.686 [place] [id number] [address] OFFICE BUILDING 2021-09-29 2021-09-29 Outpatient R VANITA [facility] [id number] Univers 10:15:00 10:15:00 [facility] 2021-09-29 2021-09-29 Office Vanita, [facility] 1.2.840.114 [id number] Univers 09:00:00 09:30:[address] [facility] 350.1.13.10 it y of [place].2.7.2.[place] [id number] [facility] [address] OFFICE BUILDING 2021-09-29 2021-09-29 Outpatient R VANITA [facility] [id number] Univers 09:00:00 09:00:00 [facility] 2021-09-26 2021-09-26 Refgeo Kirkpatrick [facility] 1.2.955.045 [id number] Univers 00:00:00 00:00:00 Aye PLASCENCIA 350.1.13.10 i ty of [place] 4.2.7.2.686 [place] [facility] [id number] [facility] [address] BUILDING 2021-09-18 2021-09-18 Outpatient ALYSSA ERICKSON [facility] [id number] Univers 09:30:00 09:30:[address] [facility] 2021-09-15 2021-09-15 Outpatient R KAYA [facility] [id number] Univers 08:15:00 08:15:[address] [facility] 2021-09-03 2021-09-03 Outpatient R ALYSSA MACDONALD [facility] [id number] Univers 09:30:00 09:30:[address] [facility] 2021-08-25 2021-08-25 Outpatient Yelena KIRKPATRICK [facility] [id number] Univers 11:00:00 11:00:[address] [facility] 2021-08-18 2021-08-18 Telephone [facility] 1.2.843.599 [id number] Univers 00:00:00 00:00:00 Alyssa BAL 350.1.13.10 ity Jeanette [place].2.[place] [id number] [facility] AND [address] DIABETES CLINIC 2021-08-15 2021-08-15 Outpatient ALYSSA ERICKSON [facility] [id number] Univers 15:00:00 15:00:[address] [facility] 2021-08-15 2021-08-15 Outpatient R ALYSSA MACDONALD [facility] [id number] Univers 14:00:00 14:00:[address] [facility] 2021-08-14 2021-08-14 Outpatient R KAYA [facility] [id number] Univers 09:00:00 09:00:[address] [facility] 2021-08-14 2021-08-14 [facility]phone [facility] 1.2.048.045 [id number] Univers 00:00:00 00:00:00 Alyssa BAL 350.1.13.10 ity of [place] 4.2.7.2.686 [facility] s [place] [id number] [address] DIABETES CLINIC 2021-07-24 2021-07-24 Outpatient ALYSSA ERICKSON [facility] [id number] Univers 09:00:00 10:31:[address] [facility] 2021-07-24 2021-07-24 Office Torres [facility] 1.2.840.114 [id number] Univers 09:00:00 10:31:21 Visit Alyssa BAL 350.1.13.10 ity of [place] 4.2.7.2.686 [facility] [id number] [address] DIABETES CLINIC 2021-07-24 2021-07-24 Outpatient R ALYSSA MACDONALD [facility] [id number] Univers 09:00:00 10:31:[address] [facility] 2021-07-24 2021-07-24 Orders Doctor CLAUDIA 1.2.840.114 [id number] Univers 00:00:00 00:00:00 Only Unassigned, KAMALA 350.1.13.10 ity of [place] [facility] 4.2.7.2.686 [facility] [id number] [place] [address] Branch 2021-07-16 2021-07-16 [facility] 1.2.840.114 [id number] Univers 08:08:11 23:59:00 Encounter Sergio PLASCENCIA 350.1.13.[address] [facility] 4.2.7.2.[place] [id number] [facility] [address] 2021-07-16 2021-07-16 Outpatient R PIPES, [facility] [id number] Univers 08:08:11 23:59:00 [facility] 2021-06-24 2021-06-24 Outpatient R PIPES, [facility] [id number] Univers 09:00:00 09:42:23 [facility] 2021-06-24 2021-06-24 Office Pipes, [facility] 1.2.840.114 [id number] Univers 09:00:00 09:42:[address] [facility] 350.1.13.10 it y of [place] 4.2.7.2.[place] [id number] [facility] [address] OFFICE BUILDING 2021-06-24 2021-06-24 Outpatient R PIPES, [facility] [id number] Univers 09:00:00 09:00:00 [facility] 2021-06-23 2021-06-23 Refgeo [facility] 1.2.225.560 [id number] Univers 00:00:00 00:00:00 Aye PLASCENCIA 350.1.13.10 i ty of [place].2.7.2.686 [place] [id number] In dical NAL [address] [place] [address] 2021-06-23 2021-06-23 Refgeo [facility] 1.2.830.700 [id number] Univers 00:00:00 00:00:00 Aye PLASCENCIA 350.1.13.10 i ty of [place] 4.2.7.2.686 [place] [id number] In dical NAL [address] [place] [address] 2021-03-28 2021-03-28 Mich Coker [facility] 1.2.766.520 [id number] Univers 00:00:00 00:00:00 Roshunda R CHUTE WORKER 350.1.13.10 ity of [place] 4.2.7.2.686 Jose L as MATERNAL [id number] Med ical & CHILD [address] [place] [address] 2021-03-25 2021-03-25 Outpatient R VANITA, [facility] [id number] Univers 11:30:00 14:14:15 [facility] 2021-03-25 2021-03-25 Office Vanita, [facility] 1.2.840.114 [id number] Univers 11:30:00 14:14:[address] [facility] 350.1.13.10 it y of [place]2.7.2.[place] [id number] [address] OFFICE BUILDING 2021-03-24 2021-03-24 Office Paul, [facility] 1.2.840.114 [id number] Univers 12:45:00 13:29:58 Visit Zoran Kirk CHUTE WORKER 350.1.13.10 ity of [facility] 4.2.7.2.686 Jose L as MATERNAL [phone] Med ical & CHILD 107 [facility] 2021-03-24 2021-03-24 Outpatient R COKER [facility] [id number] Univers 12:45:00 13:29:58 ROSNDA myesha o [facility] 2021-03-24 2021-03-24 Outpatient R COKER [facility] [id number] Univers 12:45:00 12:45:00 NAVOS HEALTHDANNI brunner o [facility] 2021-03-06 2021-03-06 Outpatient R VANITA, [facility] [id number] Univers 09:00:00 09:00:00 [facility] 2021-02-28 2021-02-28 Urgent Aliya Pinedo [facility] 1.2.840 .114 [id number] Univers 09:20:00 09:40:00 [facility] 350.1.13.10 ity [facility] 4.2.7.2.686 Jose L as JESSIKA?BLEA [phone] In olga [address] MEDICAL OFFICE BUILDING 2021-02-28 2021-02-28 Outpatient R DELBERT [facility] [id number] Univers 09:20:00 09:20:00 ALIYA brunner o [facility] 2021-02-10 2021-02-10 Outpatient R ZUHAIR, [facility] [id number] Univers 08:24:39 23:59:00 JERRY brunner o f [facility] 2021-02-10 2021-02-10 Hospital [facility] 1.2.840.114 [id number] Univers 08:24:39 23:59:00 Encounter Chilvana HEALTH 350.1.13.10 ity of [place].2.[place] [id number] [facility] [address] OFFICE BUILDING 2021-01-09 2021-01-09 Outpatient R ZUHAIR, [facility] [id number] Univers 09:00:00 09:00:00 TODD walsh [facility] 2020-12-25 2020-12-25 [facility] 1.2.840.114 [id number] Univers 00:00:00 00:00:00 Management Prabhudiful A HEALTH 350.1.13.10 ity of [place] 4.2.7.2.686 Jose L as JESSIKA?BLEA [id number] In olga KNEY [address] MEDICAL OFFICE BUILDING 2020-12-20 2020-12-20 Outpatient R VANITA [facility] [id number] Univers 09:29:43 23:59:00 SERGIO ity of [facility] 2020-12-20 2020-12-20 [facility] 1.2.840.114 [id number] Univers 09:29:43 23:59:00 Encounter Sergio PLASCENCIA 350.1.13.10 ity of [place].2.7.2.[place] [id number] [facility] [address] 2020-12-20 2020-12-20 Sports Attorney 2, Adc Lab [facility] 1.2.840.114 [id number] Univers 10:33:56 10:48:56 Visit Rosa OdellTON [id number]. 10 [id number] [phone] In d[place] NAL [address] BUILDING 2020-12-20 2020-12-20 Orders Doctor CLAUDIA [id number] Univers 00:00:00 00:00:00 Only Unassigned, KAMALA [id number] ity of [place] [facility] [id number] Jose L as [phone] [place] [address] [address] 2020-11-28 2020-11-28 Office [facility], [facility] [id number] Univers 10:04:24 10:34:24 Visit [facility] [id number] [id number] [phone] [facility] [address] Office Building 2020-11-28 2020-11-28 Outpatient R VANITA [facility] [id number] Univers 10:00:00 10:00:00 [facility] 2020-09-18 2020-09-18 Outpatient R JOSE R [facility] [id number] Univers 09:00:00 09:00:00 WONDIFUL ity o f [facility] 2020-09-17 2020-09-17 Outpatient R JOSE R [facility] [id number] Univers 14:30:00 14:30:00 WONDIFUL ity o f [facility] 2020-09-05 2020-09-05 Outpatient HAJA AUSTIN [facility] [id number] Univers 13:45:00 13:45:00 [facility] 2020-08-28 2020-08-28 Outpatient Yelena WALDRON [facility] [id number] Univers 15:00:00 15:00:00 [facility] 2020-08-27 2020-08-27 Outpatient HAJA AUSTIN [facility] [id number] Univers 09:15:00 09:15:00 [facility] 2020-08-21 2020-08-21 Outpatient Yelena CANNON HAJA [facility] [id number] Univers 09:30:00 [facility] 2020-08-14 Outpatient R KAYA [facility] [id number] Univers 10:15:00 10:15:[address] [facility] 2020-08-07 2020-08-07 Outpatient R KAYA [facility] [id number] Univers 00:00:00 00:00:[address] [facility] 2020-08-01 2020-08-01 Outpatient R KAYA [facility] [id number] Univers 14:30:00 14:30:[address] [facility] 2020-07-24 2020-07-24 Outpatient R KAYA [facility] [id number] Univers 09:30:00 09:30:00 AYE [facility] 2020-07-24 2020-07-24 Outpatient R KAYA [facility] [id number] Univers 09:30:00 09:30:00 AYE [facility] 2020-07-19 2020-07-19 Outpatient R KAYA [facility] [id number] Univers 08:30[facility]00 [facility] 2020-07-19 Outpatient R KAYA [facility] [id number] Univers 00:00:00 00:00:00 AYE [facility] 2019-08-03 2019-08-03 Outpatient R KAYA [facility] [id number] Univers 07:36:11 08:21:00 [facility] 2019-07-24 2019-07-24 Sports Attorney 2, Adc Lab [facility] [id number] Univers 08:17:27 08:32:27 Visit Aye Kirkpatrick [id number] [facility] [id number] [place] [facility] [phone] In dic[address] 2019-07-24 2019-07-24 Outpatient R [facility] [id number] Univers 08:15:00 08:15:[facility] 2019-07-20 Office Kaya [facility] [id number] Univers 09:41:42 15:13:37 Visit Aye Plascencia [id number] i [facility] [place] [id number] Jose La s Professio [phone] In dical [address] 2019-07-20 2019-07-20 Outpatient R KAYA [facility] [id number] [facility] 09:30:00 09:30:00 AYE ity of [facility] 2019-07-20 2019-07-20 Orders Doctor CLAUDIA [id number] [facility] 00:00:00 00:00:00 Only Unassigned, KAMALA [id number] ity of [place] [facility] [id number] Jose L as [phone] [place] [address] Branch Results This patient has no known results.
--- NOTE | 2022-03-30 10:54 | RAD REPORT ---
EXAM DESCRIPTION: CT - Head Brain Wo Cont - 03/30/2022 10:47 am CLINICAL HISTORY: Dizziness COMPARISON: 2013 TECHNIQUE: Computed axial tomography of the head was obtained. IV contrast was not requested. All CT scans are performed using dose optimization technique as appropriate and may include automated exposure control or mA/KV adjustment according to patient size. FINDINGS: An intracranial bleed is not seen The ventricles are normal in caliber No significant hypodense areas within the brain visualized No extra-axial fluid collection is noted. Fluid within the sinuses/ mastoids is not seen IMPRESSION: No acute intracranial abnormality is seen If patient's symptoms persist MRI of the brain would be recommended
[2022-03-30 12:09] LABS: Absolute Lymphocytes (CBC) 2.8 K/uL (0.7-4.9); Hematocrit 36.9 % (36.0-45.0); MCV 83.7 fL (80-100); MPV 7.3 fL (7.6-11.3); RBC Red Blood Cell Count 4.41 M/uL (3.86-4.86)
[2022-03-30 12:13] LABS: Protime INR 0.96
[2022-03-30 12:22] LABS: Potassium 3.6 mmol/L (3.5-5.1); Troponin High Sensitivity 3.5 pg/mL (<58.9)
[2022-03-30 12:30] LABS: Urine Blood Negative (Negative); Urine Glucose Negative (Negative); Urine Protein Negative (Negative); Urine pH 6.5 (5.0-7.0)
--- NOTE | 2022-03-30 14:18 | RAD REPORT ---
EXAM DESCRIPTION: MRI - Brain Wo Cont - 03/30/2022 2:05 pm CLINICAL HISTORY: DIZZINESS Headache, drowsiness, dizziness COMPARISON: Head Brain Wo Cont dated 03/30/2022 TECHNIQUE: Multi-sequence, multiplanar MR imaging of the brain was performed without contrast. FINDINGS: No intracranial hemorrhage, hydrocephalus or extra-axial fluid collections. No edema or sh ift of midline structures. No findings to suspect brain mass. DWI is negative for acute CVA. Midline structures are normally formed. Mastoid air cells and paranasal sinuses are clear. IMPRESSION: No acute or concerning intracranial abnormalities.
[2022-03-30] MEDS ORDERED: MECLIZINE HCL 12.5 MG TAB ONE (14:23)
[2022-03-30] MEDS ORDERED: ONDANSETRON 4 MG/2 ML VIAL ONE (14:23)
[2022-03-30] MEDS ORDERED: NA CHLORIDE 0.9% 500 ML ONE (14:24)
--- NOTE | 2022-03-30 15:00 | EDPHYS ---
Physician Documentation [facility] Name: Shannen Boyd Age: 47 yrs Sex: Female : 1975 Arrival Date: 03/30/2022 Time: 10:03 Bed 4 Private MD: ED Physician Alejandro Chambers HPI: 03/30 10:48 This 47 yrs old Female presents to ER via Ambulatory with complaints of rn Dizziness. 10:48 The patient presents with dizziness, sense of spinning, vertigo. Onset: The rn symptoms/episode began/occurred yesterday. Context: occurred at home, occurred while the patient was getting up from bed. Modifying factors: The symptoms are alleviated by closing eyes, lying down, the symptoms are aggravated by movement of head, standing up, changing position. Associated signs and symptoms: Pertinent negatives: abdominal pain, chest pain, combativeness, confusion, focal weakness, head injury, headache, seizure, shortness of breath, syncope, tingling, vomiting. Severity of symptoms: At their worst the symptoms were moderate in the emergency department the symptoms have improved. The patient has not experienced similar symptoms in the past. The patient has not recently seen a physician. 10:48 Pt reports dizziness that began yesterday, intermittent, no other focal neuro rn complaints. No fever. No head injury. Recently taken off some medication but no new additions. . Historical: - Allergies: 10:22 No Known Allergies; jl7 - Home Meds: 10:26 Lyrica Oral [Active]; jl7 - PMHx: 10:22 breast cancer; Seizures; jl7 10:26 Migraine; jl7 - Immunization history:: Adult Immunizations unknown. - Social history:: Smoking status: unknown. - Family history:: not pertinent. - Hospitalizations: : No recent hospitalization is reported. ROS: 10:48 Constitutional: Negative for fever, chills, and weight loss, Eyes: Negative for injury, rn pain, redness, and discharge, Neck: Negative for injury, pain, and swelling, Cardiovascular: Negative for chest pain, palpitations, and edema, Respiratory: Negative for shortness of breath, cough, wheezing, and pleuritic chest pain, Abdomen/GI: Negative for abdominal pain, nausea, vomiting, diarrhea, and constipation, Back: Negative for injury and pain, MS/Extremity: Negative for injury and deformity, Skin: Negative for injury, rash, and discoloration, Neuro: Negative for headache, weakness, numbness, tingling, and seizure. Exam: 10:48 Constitutional: This is a well developed, well nourished patient who is awake, alert, rn and in no acute distress. Ambulatory to triage with minimal assistance Head/Face: Normocephalic, atraumatic. Eyes: Pupils equal round and reactive to light, extra-ocular motions intact. Lids and lashes normal. Conjunctiva and sclera are non-icteric and not injected. Cornea within normal limits. Periorbital areas with no swelling, redness, or edema. Neck: Trachea midline, no masses palpated, and no cervical lymphadenopathy. Supple, full range of motion without nuchal rigidity, or vertebral point tenderness. No Meningismus. Cardiovascular: Regular rate and rhythm. No pulse deficits. Respiratory: No increased work of breathing, no retractions or nasal flaring. Abdomen/GI: Soft, non-tender Skin: Warm, dry MS/ Extremity: Pulses equal, no cyanosis. Neuro: Awake and alert, GCS 15, oriented to person, place, time, and situation. Cranial nerves II-XII grossly intact. Motor strength 5/5 in all extremities. Sensory grossly intact. Cerebellar exam normal. Normal gait. 15:56 ECG was reviewed by the Attending Physician. rn Vital Signs: 10:21 Pulse 63; Resp 17; Temp 98.1; Pulse Ox 99% on R/A; Pain 0/10; jl7 10:24 BP 160 / 87; jl7 14:35 BP 142 / 72; Pulse 60; Resp 18; Pulse Ox 96% on R/A; Pain 0/10; ld1 15:02 BP 140 / 70; Pulse 57; Resp 22; Pulse Ox 98% ; bp MDM: 10:17 Patient medically screened. rn 11:05 Differential diagnosis: cardiac arrhythmia, CVA, generalized weakness, hypovolemia, rn idiopathic dizziness, TIA, vertigo. Consideration of Admission/Observation Escalation of care including admission/observation considered. Will depend on imaging studies. If can obtain MRI, can dc home if neg.. Independent interpretation of the following test(s) in the Emergency Department CT Scan: My interpretation is CT head images negative for bleeding. 14:58 Data reviewed: vital signs, nurses notes, lab test result(s), EKG, radiologic studies, rn CT scan, MRI, and as a result, I will discharge patient. Counseling: I had a detailed discussion with the patient and/or guardian regarding: the historical points, exam findings, and any diagnostic results supporting the discharge/admit diagnosis, lab results, radiology results, the need for outpatient follow up, to return to the emergency department if symptoms worsen or persist or if there are any questions or concerns that arise at home. Special discussion: I discussed with the patient/guardian in detail that at this point there is no indication for admission to the hospital. It is understood, however, that if the symptoms persist or worsen the patient needs to return immediately for re-evaluation. Based on the history and exam findings, there is no indication for further emergent testing or inpatient evaluation. I discussed with the patient/guardian the need to see the neurologist for further evaluation of the symptoms. ED course: Pt with neg ct head, neg MRI, feels better after meclizine, will dc home with return precautions and neuro f/u. Has appt with her neurologist april 13. . 03/30 10:30 Order name: Basic Metabolic Panel rn 03/30 10:30 Order name: CBC with Diff rn 03/30 10:30 Order name: Protime (+inr) rn 03/30 10:30 Order name: Ptt, Activated rn 03/30 10:30 Order name: Troponin High Sensitivity rn 03/30 12:13 Order name: Protime (+INR); Complete Time: 12:29 EDNE 03/30 10:30 Order name: CT Head Brain wo Cont rn 03/30 12:13 Order name: PTT, Activated Partial Thromb; Complete Time: 12:29 EDNE 03/30 12:13 Order name: CBC with Automated Diff; Complete Time: 12:29 EDNE 03/30 12:23 Order name: Basic Metabolic Panel; Complete Time: 12:29 EDNE 03/30 12:23 Order name: Troponin High Sensitivity; Complete Time: 12:29 EDNE 03/30 12:30 Order name: Urine Dipstick-Ancillary; Complete Time: 14:00 EDNE 03/30 14:14 Order name: Urine --Ancillary (enter results) eb 03/30 14:26 Order name: Urine --Ancillary; Complete Time: 14:47 EDNE 03/30 10:30 Order name: EKG; Complete Time: 10:31 rn 03/30 10:30 Order name: Cardiac monitoring; Complete Time: 14:26 rn 03/30 10:30 Order name: EKG - Nurse/Tech; Complete Time: 14:35 rn 03/30 10:30 Order name: IV Saline Lock; Complete Time: 12:01 rn 03/30 10:30 Order name: Labs collected and sent; Complete Time: 12:01 rn 03/30 10:30 Order name: O2 Per Protocol; Complete Time: 13:23 rn 03/30 10:30 Order name: O2 Sat Monitoring; Complete Time: 13:23 rn 03/30 10:30 Order name: Urine Dipstick-Ancillary (obtain specimen); Complete Time: 12:48 rn 03/30 10:31 Order name: Brain Wo Cont MRI rn 03/30 10:54 Order name: CT; Complete Time: 11:00 EDMS 03/30 14:19 Order name: MRI; Complete Time: 14:47 EDMS EC:56 Rate is 54 beats/min. Rhythm is regular. QRS [place] is Normal. OK interval is normal. QRS rn interval is normal. QT interval is normal. No Q waves. T waves are Normal. No ST changes noted. Clinical impression: Sinus bradycardia. Interpreted by me. Reviewed by me. Administered Medications: 14:27 Drug: Meclizine 50 mg Route: PO; ld1 15:03 Follow up: Response: No adverse reaction bp 14:27 Drug: NS 0.9% 500 ml Route: IV; Rate: bolus; Site: right antecubital; ld1 15:03 Follow up: IV Status: Completed infusion; IV Intake: 500ml bp 14:27 Drug: Zofran (Ondansetron) 4 mg Route: IVP; Site: right antecubital; ld1 15:03 Follow up: Response: No adverse reaction bp Disposition Summary: 03/30/22 15:00 Discharge Ordered Location: Home rn Problem: new rn Symptoms: have improved rn Condition: Stable rn Diagnosis - Dizziness and giddiness rn - Vertigo rn Followup: rn - With: Private Physician - When: As needed - Reason: Recheck today's complaints, Re-evaluation by your physician Discharge Instructions: - Discharge Summary Sheet rn - Dizziness rn - Vertigo rn Forms: - Medication Reconciliation Form rn - Thank You Letter rn - Antibiotic intelligence intern - Prescription Opioid Use rn Prescriptions: - Meclizine 25 mg Oral Tablet - take 1 tablet by ORAL route every 8 hours As needed; 30 tablet; Refills: 0, rn Product Selection Permitted Signatures: Dispatcher [employer] Alejandro Gil MD MD rn Luis Hyde RN RN jl7 Niki Cuellar RN RN ld1 Ralph Rowan RN bp
--- NOTE | 2022-03-30 15:00 | ER ---
Nurse's Notes [facility] Name: Shannen Boyd Age: 47 yrs Sex: Female : 1975 Arrival Date: 03/30/2022 Time: 10:03 Bed 4 Private MD: Diagnosis: Dizziness and giddiness;Vertigo Presentation: 03/30 10:21 Chief complaint: Patient states: Intermittent dizziness since yesterday, denies nausea, jl7 feels "drunk". Coronavirus screen: At this time, the client does not indicate any symptoms associated with coronavirus-19. Ebola Screen: No symptoms or risks identified at this time. Initial Sepsis Screen: Does the patient meet any 2 criteria? No. Patient's initial sepsis screen is negative. Does the patient have a suspected source of infection? No. Patient's initial sepsis screen is negative. Risk Assessment: Do you want to hurt yourself or someone else? Patient reports no desire to harm self or others. Onset of symptoms is unknown. 10:21 Method Of Arrival: Ambulatory [facility] 10:21 Acuity: KEVAN 3 jl7 Triage Assessment: 10:22 General: Appears in no apparent distress. uncomfortable, Behavior is cooperative, jl7 anxious. Pain: Denies pain. Neuro: Level of Consciousness is awake, alert, obeys commands, Oriented to person, place, time, situation, Process Manager are equal bilaterally Moves all extremities. Full function Gait is unsteady, Speech is normal, Facial symmetry appears normal. Historical: - Allergies: 10:22 No Known Allergies; jl7 - Home Meds: 10:26 Lyrica Oral [Active]; jl7 - PMHx: 10:22 breast cancer; Seizures; jl7 10:26 Migraine; jl7 - Immunization history:: Adult Immunizations unknown. - Social history:: Smoking status: unknown. - Family history:: not pertinent. - Hospitalizations: : No recent hospitalization is reported. Screenin:35 [facility] ED Fall Risk Assessment (Adult) History of falling in the last 3 months, ld1 including since admission No falls in past 3 months (0 pts). Abuse screen: Denies threats or abuse. Denies injuries from another. Nutritional screening: No deficits noted. Tuberculosis screening: No symptoms or risk factors identified. Assessment: 10:23 Reassessment: Dr. Chambers in triage assessing pt. jl7 14:35 General: Appears in no apparent distress. comfortable, Behavior is calm, cooperative, ld1 appropriate for age. Pain: Denies pain. Neuro: Level of Consciousness is awake, alert, obeys commands, Oriented to person, place, time, situation, Reports dizziness. Cardiovascular: Capillary refill < 3 seconds Patient's skin is warm and dry. Rhythm is sinus bradycardia. Respiratory: Airway is patent Respiratory effort is even, unlabored. GI: Abdomen is flat, non-distended. : No signs and/or symptoms were reported regarding the genitourinary system. EENT: No signs and/or symptoms were reported regarding the EENT system. Derm: No signs and/or symptoms reported regarding the dermatologic system. Musculoskeletal: No signs and/or symptoms reported regarding the musculoskeletal system. Vital Signs: 10:21 Pulse 63; Resp 17; Temp 98.1; Pulse Ox 99% on R/A; Pain 0/10; jl7 10:24 BP 160 / 87; jl7 14:35 BP 142 / 72; Pulse 60; Resp 18; Pulse Ox 96% on R/A; Pain 0/10; ld1 15:02 BP 140 / 70; Pulse 57; Resp 22; Pulse Ox 98% ; bp ED Course: 10:03 Patient arrived in ED. mr 10:17 Alejandro Chambers MD is Attending Physician. rn 10:22 Triage completed. jl7 10:22 Arm band placed on right wrist. Patient placed in waiting room, Patient notified of jl7 wait time. 12:01 Inserted saline lock: 20 gauge in right antecubital area, using aseptic technique. zm Blood collected. 12:01 Basic Metabolic Panel Sent. zm 12:01 CBC with Diff Sent. zm 12:01 Protime (+inr) Sent. zm 12:01 Ptt, Activated Sent. zm 12:01 Troponin High Sensitivity Sent. zm 14:26 Niki Cuellar, DONG is Primary Nurse. ld1 14:35 Patient has correct armband on for positive identification. Placed in gown. Bed in low ld1 position. Call light in reach. Side rails up X2. threat monitoring analyst on. Pulse ox on. NIBP on. Door closed. Noise minimized. Warm blanket given. 14:35 No provider procedures requiring assistance completed. ld1 15:02 IV discontinued, intact, bleeding controlled, No redness/swelling at site. Pressure bp dressing applied. Administered Medications: 14: Drug: Meclizine 50 mg Route: PO; ld1 15:03 Follow up: Response: No adverse reaction bp 14:27 Drug: NS 0.9% 500 ml Route: IV; Rate: bolus; Site: right antecubital; ld1 15:03 Follow up: IV Status: Completed infusion; IV Intake: 500ml bp 14:27 Drug: Zofran (Ondansetron) 4 mg Route: IVP; Site: right antecubital; ld1 15:03 Follow up: Response: No adverse reaction bp Medication: 14:35 VIS not applicable for this client. ld1 Intake: 15:03 IV: 500ml; Total: 500ml. bp Outcome: 15:00 Discharge ordered by . rn 15:09 Patient left the ED. bp Signatures: Karen Ferguson Roman, MD MD rn Leal, Jahala, RN RN jl7 Ralph Rowan RN RN bp Dibbern, Lauren, RN RN ld1 Genny Boyd
[2022-03-30 16:11] VITALS: TEMP 98.1
[2022-03-30 16:14] VITALS: BP 140/70; O2SAT 98
--- NOTE | 2022-03-31 16:19 | EKG ---
Test Date: 2022-03-30 Test Time: 14:32:22 Jute Bag Cutting Machine Operator: MAXIMILIANO MEASUREMENT RESULTS: Intervals: Rate: 54 [place]: 166 QRSD: 86 QT: 412 QTc: 390 [place]: P: 13 [place]: 166 QRS: 72 T: 25 INTERPRETIVE STATEMENTS: Sinus bradycardia Otherwise normal ECG Compared to ECG 10/31/2018 00:58:54 No significant changes Electronically Signed On 03-31-22 16:18:11 LIQUID CENTER ASSEMBLER by Suleiman Albert
== END 2022-03-30 15:09 | disposition home or self-care (01) ==
LOC: ER 10:00
DX: R42 Dizziness and giddiness (principal); Z85.3 Personal history of malignant neoplasm of breast
CPT/HCPCS: 96361; 93005; 85025; 80048; 36415; 81025; 85610; 85730; 81003; 84484; 70450; 70551; 96374; 99284; J8597; J7040; J2405